=== PATIENT | male | born 1985 | race Caucasian/White ===

== ENCOUNTER 2016-12-18 12:58 | Emergency (ER) | payer MEDICARE, OTHER ==
[~2016-12-18] VITALS: Ht 180.3 cm; Wt 127.0 kg
[~2016-12-18 12:58] MED LIST: Z.0.NO CURRENT MEDS
[2016-12-18 13:04] VITALS: BP 126/90; PULSE 74; RESP 18; TEMP 98.5; O2SAT 97
[2016-12-18] MEDS ORDERED: XANA1TAB2 PO (14:00)
[2016-12-18] MEDS ORDERED: LAMO25 PO (14:00)
[2016-12-18] MEDS ORDERED: ASPI81CH CHEW (14:05)
[2016-12-18] MEDS ORDERED: MAGN500T2 PO (14:05)
[2016-12-18] MEDS ORDERED: CLIN1CAP5 PO (14:39)
--- NOTE | 2016-12-18 14:39 | PD ---
HPI Chief Complaint: Skin Problem Time Seen by Provider: 14:18 Travel History International Travel<30 days: No Contact w/Intl Traveler<30days: No Traveled to known affect area: No History of Present Illness HPI 31-year-old male complains of painful bumps on upper chest and shoulders. Patient states that the bumps started about 4 days ago. Patient denies any fever chills. Patient also has painful bumps on the groin area. Patient denies any recent injury. Patient denies any headache. Patient denies any chest pain or shortness of breath. PFSH Past Medical History Atrial Fibrillation: Yes (anxiety induced ) Anxiety: Yes Diminished Hearing: No Psychiatric: Yes (anxiety and PTSD) Tetanus Vaccination: Unknown Influenza Vaccination: No ?: Not Past Surgical History Appendectomy: Yes Social History Alcohol Use: No Tobacco Use: Yes (chewing tob) Substance Use: No Allergies-Medications (Allergen,Severity, Reaction): Coded Allergies: Penicillin (Verified Allergy, Mild, 12/18/16) Reported Meds & Prescriptions Reported Meds & Active Scripts Active Reported Aspirin 81 Mg Chew 81 Mg CHEW DAILY Magnesium Oxide 500 Mg Tab 500 Mg PO DAILY Lamictal (Lamotrigine) 25 Mg Tab 25 Mg PO BID Xanax (Alprazolam) 1 Mg Tab 1 Mg PO Q6H PRN No Current Meds (Miscellaneous Medication) Misc Review of Systems General / Constitutional: No: Fever Eyes: No: Visual changes HENT: No: Headaches Cardiovascular: No: Chest Pain or Discomfort Respiratory: No: Shortness of Breath Gastrointestinal: No: Abdominal Pain Genitourinary: No: Dysuria Musculoskeletal: No: Pain Skin: No Rash Neurologic: No: Weakness Psychiatric: No: Depression Endocrine: No: Polydipsia Hematologic/Lymphatic: No: Easy Bruising Physical Exam Narrative GENERAL: Well-nourished, well-developed patient. SKIN: Warm and dry. Multiple pustule papular lesions on the shoulder is an upper chest and upper back. Patient has a few papular lesions on inguinal area. No induration noted discharge. HEAD: Normocephalic. EYES: No scleral icterus. No injection or drainage. NECK: Supple, trachea midline. No JVD or lymphadenopathy. CARDIOVASCULAR: Regular rate and rhythm without murmurs, gallops, or rubs. RESPIRATORY: Breath sounds equal bilaterally. No accessory muscle use. GASTROINTESTINAL: Abdomen soft, non-tender, nondistended. MUSCULOSKELETAL: No cyanosis, or edema. BACK: Nontender without obvious deformity. No CVA tenderness. Neurologic exam normal. Data Data Last Documented VS Vital Signs Date Time Temp Pulse Resp B/P Pulse Ox O2 Delivery O2 Flow Rate FiO2 12/18/16 13:04 98.5 74 18 126/90 97 MDM Medical Decision Making Medical Screen Exam Complete: Yes Emergency Medical Condition: Yes Differential Diagnosis Differential diagnosis including folliculitis, cellulitis, chickenpox. Narrative Course 31-year-old male with painful pustule lesions on upper chest shoulder and inguinal area. Diagnosis Primary Impression: Folliculitis Patient Instructions: General Instructions Additional Instructions: Take medications as directed. Follow-up with local physician. Return if worse. Med/Other Pt SpecificInfo: Prescription(s) given Scripts Clindamycin 150 Mg Cap2 Tab PO Q6H #80 CAP Prov:Justyn Laws MD 12/18/16 Disposition: 01 DISCHARGE HOME Condition: Stable Justyn Laws MD Dec 18, 2016 14:39
[2017-01-24] MEDS ORDERED: LAMO25TA PO (13:20)
[2017-01-24] MEDS ORDERED: XANA1TAB2 PO (13:20)
[2017-01-24] MEDS ORDERED: MAGN500T5 PO (13:20)
[2017-01-24] MEDS ORDERED: ASPI81CH CHEW (13:20)
[2017-02-07] MEDS ORDERED: CIPR0.3S LEFT EAR (16:09)
[2017-02-20] MEDS ORDERED: PRIL20CA9 PO (09:50)
== END 2016-12-18 14:53 | disposition home or self-care (01) ==
LOC: PHED 12:58
DX: L73.9 Follicular disorder, unspecified (principal)
CPT/HCPCS: 99282

== ENCOUNTER 2017-01-07 17:56 | Emergency (ER) | payer MEDICARE, OTHER ==
[~2017-01-07] VITALS: Ht 180.3 cm; Wt 122.0 kg
[~2017-01-07 17:56] MED LIST changes: +ASPI81CH CHEW; +CLIN1CAP5 PO; +LAMO25 PO; +MAGN500T2 PO; +XANA1TAB2 PO
[2017-01-07 18:01] VITALS: BP 131/83; PULSE 80; RESP 16; TEMP 98.8; O2SAT 97
--- NOTE | 2017-01-07 18:06 | PD ---
HPI Chief Complaint: Anxiety Time Seen by Provider: 18:06 Travel History International Travel<30 days: No Contact w/Intl Traveler<30days: No Traveled to known affect area: No History of Present Illness HPI 31-year-old male presents to emergency Department with plates of anxiety, insomnia, palpitations, and easy anger. 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 Patient denies suicidal or homicidal ideation. Patient is upset that he has 2 young children he feels that he can't care for them safely. Patient states he has nights where he is asleep at all. He is easily startled. He is a marine with diagnosis of PTSD. Patient denies fever, chills, weight loss, weight gain, or other symptoms. He has no nausea or vomiting. [facility] not [facility]. He is allergic to penicillin. PFSH Past Medical History Atrial Fibrillation: Yes (anxiety induced ) Anxiety: Yes Diminished Hearing: No Psychiatric: Yes (anxiety and PTSD) Past Surgical History Appendectomy: Yes Social History Alcohol Use: No Tobacco Use: Yes (chewing tob) Substance Use: No Allergies-Medications (Allergen,Severity, Reaction): Coded Allergies: Penicillin (Verified Allergy, Mild, 01/07/17) Reported Meds & Prescriptions Reported Meds & Active Scripts Active Clindamycin (Clindamycin HCl) 150 Mg Cap 2 Tab PO Q6H Reported Aspirin 81 Mg Chew 81 Mg CHEW DAILY Magnesium Oxide 500 Mg Tab 500 Mg PO DAILY Lamictal (Lamotrigine) 25 Mg Tab 25 Mg PO BID Xanax (Alprazolam) 1 Mg Tab 1 Mg PO Q6H PRN No Current Meds (Miscellaneous Medication) Misc Review of Systems General / Constitutional: No: Fever Eyes: No: Visual changes HENT: No: Headaches Cardiovascular: No: Chest Pain or Discomfort Respiratory: No: Shortness of Breath Gastrointestinal: No: Abdominal Pain Genitourinary: No: Dysuria Musculoskeletal: No: Pain Skin: No Rash Neurologic: No: Weakness Psychiatric: Positive: Anxiety, Other (PTSD), No: Depression, Suicidal Ideations, Substance Abuse, Homicidal Ideation Endocrine: No: Polydipsia Hematologic/Lymphatic: No: Easy Bruising Physical Exam Narrative GENERAL: Patient is extremely anxious. He has pressured speech. He is in no acute distress. SKIN: Warm and dry. Normal color. Normal turgor. HEAD: Atraumatic. Normocephalic. EYES: Pupils equal and round. No scleral icterus. No injection or drainage. ENT: No nasal bleeding or discharge. Mucous membranes pink and moist. Pharynx is normal. NECK: Trachea midline. No JVD. Supple nontender without palpable thyroid. CARDIOVASCULAR: Tachycardic rate and normal rhythm. RESPIRATORY: No accessory muscle use. Clear to auscultation. Breath sounds equal bilaterally. GASTROINTESTINAL: Abdomen soft, non-tender, nondistended. Hepatic and splenic margins not palpable. MUSCULOSKELETAL: Extremities without clubbing, cyanosis, or edema. No obvious deformities. NEUROLOGICAL: Awake and alert. No obvious cranial nerve deficits. Motor grossly within normal limits. Five out of 5 muscle strength in the arms and legs. Normal speech. PSYCHIATRIC: Appropriate mood and affect; insight and judgment normal. Data Data Last Documented VS Vital Signs Date Time Temp Pulse Resp B/P Pulse Ox O2 Delivery O2 Flow Rate FiO2 01/07/17 18:01 98.8 80 16 131/83 97 MDM Medical Decision Making Medical Screen Exam Complete: Yes Emergency Medical Condition: Yes Differential Diagnosis PTSD. Anxiety disorder. Palpitations. Narrative Course Patient is medically stable at time of exam. Had a long discussion with the patient in regards to PTSD, symptoms and treatment options. Recommended trial of buspirone 10 mg 3 times daily #90. Patient is to take Vistaril 50 mg at bedtime as well. #30. Recommend the patient reach out to [facility] for help with his situation. Recommend patient follow with his primary care physician as soon as he gets his insurance straightened out. Patient can return to emergency department if symptoms worsen as discussed. Diagnosis Primary Impression: Post-traumatic stress disorder, chronic Referrals: Primary Care Physician Patient Instructions: General Instructions, Post Traumatic Stress Disorder (ED) Additional Instructions: Had a long discussion with the patient in regards to PTSD, symptoms and treatment options. Recommended trial of buspirone 10 mg 3 times daily #90. Patient is to take Vistaril 50 mg at bedtime as well. #30. Recommend the patient reach out to [facility] for help with his situation. Recommend patient follow with his primary care physician as soon as he gets his insurance straightened out. Patient can return to emergency department if symptoms worsen as discussed. Med/Other Pt SpecificInfo: Prescription(s) given Scripts Hydroxyzine Pamoate (Vistaril)50 Mg Cap50 Mg PO HS #30 CAP Ref 0 Prov:Melvin Luo MD 01/07/17 Buspirone 10 Mg Tab10 Mg PO TID #90 TAB Ref 0 Prov:Melvin Luo MD 01/07/17 Disposition: 01 DISCHARGE HOME Condition: Stable Sahil Man Jan 07, 2017 18:06
[2017-01-07] MEDS ORDERED: VIST50CA PO (18:22)
[2017-01-07] MEDS ORDERED: BUSP10TA PO (18:22)
[2017-01-24] MEDS ORDERED: ASPI81CH CHEW (13:20)
[2017-01-24] MEDS ORDERED: MAGN500T5 PO (13:20)
[2017-01-24] MEDS ORDERED: LAMO25TA PO (13:20)
[2017-01-24] MEDS ORDERED: XANA1TAB2 PO (13:20)
[2017-02-07] MEDS ORDERED: CIPR0.3S LEFT EAR (16:09)
[2017-02-20] MEDS ORDERED: PRIL20CA9 PO (09:50)
== END 2017-01-07 18:43 | disposition home or self-care (01) ==
LOC: PHEFT 17:56
DX: F43.12 Post-traumatic stress disorder, chronic (principal); I48.91 Unspecified atrial fibrillation; Z72.0 Tobacco use
CPT/HCPCS: 99283

== ENCOUNTER 2017-01-12 17:19 | Emergency (ER) | payer MEDICARE, OTHER ==
[~2017-01-12] VITALS: Ht 180.3 cm; Wt 122.0 kg
[2017-01-12 17:23] VITALS: BP 138/85; PULSE 92; RESP 20; TEMP 98.2; O2SAT 95
--- NOTE | 2017-01-12 20:11 | PD ---
HPI Chief Complaint: Medical Clearance Time Seen by Provider: 20:06 Travel History International Travel<30 days: No Contact w/Intl Traveler<30days: No Traveled to known affect area: No History of Present Illness HPI 31-year-old white male presents to emergency department requesting a refill of his alprazolam. He states that he has had a history of anxiety and PTSD. He also takes lamotrigine. He states that he is out of his anxiety medicine and he cannot find anyone to refill it. He was here in emergency department 2 days ago was given a prescription for buspirone and Vistaril. He states that he didn 't fill the buspirone but did not fill the Vistaril. He states that he feels he needs to have his benzos refilled. He cannot sleep. He states that he feels very anxious. He has having anger issues. He denies any suicidal homicidal ideation. He does not want to be admitted. He states that he would like to get a refill of a benzo. He states that he would also take a prescription for Klonopin. He moved from [place] 2 months ago and has not seen a primary care or psychiatrist since then. He states he has had problems with his insurance. PFSH Past Medical History Atrial Fibrillation: Yes (anxiety induced ) Anxiety: Yes Diminished Hearing: No Psychiatric: Yes (anxiety and PTSD) Past Surgical History Appendectomy: Yes Social History Alcohol Use: No Tobacco Use: Yes (chewing tob) Substance Use: No Allergies-Medications (Allergen,Severity, Reaction): Coded Allergies: Penicillin (Verified Allergy, Mild, RASH, 01/12/17) Reported Meds & Prescriptions Reported Meds & Active Scripts Active Review of Systems Except as stated in HPI: all other systems reviewed are Neg General / Constitutional: No: Fever, Chills Eyes: No: Diploplia, Blurred Vision HENT: No: Headaches, Lightheadedness Cardiovascular: Positive: Palpitations, Tachycardia, No: Chest Pain or Discomfort Respiratory: No: Cough, Shortness of Breath Gastrointestinal: Positive: Nausea, No: Vomiting Genitourinary: No: Dysuria, Hematuria Musculoskeletal: No: Arthralgias, Limited ROM Skin: No Rash, No Itching Psychiatric: Positive: Anxiety, No: Depression, Suicidal Ideations, Disorder of Thought, Mood Disorder, Substance Abuse, Homicidal Ideation Physical Exam Narrative GENERAL: Well-nourished, well-developed patient. SKIN: Warm and dry. HEAD: Normocephalic and atraumatic. EYES: No scleral icterus. No injection or drainage. ENT: No nasal drainage noted. Mucous membranes pink. Airway patent. NECK: Supple, trachea midline. Moves head freely without obvious discomfort. CARDIOVASCULAR: Regular rate and rhythm without murmurs, gallops, or rubs. RESPIRATORY: Breath sounds equal bilaterally. No accessory muscle use. GASTROINTESTINAL: Abdomen soft, non-tender, nondistended. EXTREMITIES: No cyanosis or edema. BACK: Nontender without obvious deformity. No CVA tenderness. NEURO: Patient is alert and oriented. no sensorimotor deficits. Nonfocal. Normal speech. PSYCH: No delusions. No auditory or visual hallucinations. Data Data Last Documented VS Vital Signs Date Time Temp Pulse Resp B/P Pulse Ox O2 Delivery O2 Flow Rate FiO2 01/12/17 17:23 98.2 92 20 138/85 95 Room Air MDM Medical Decision Making Medical Screen Exam Complete: Yes Emergency Medical Condition: Yes Medical Record Reviewed: Yes Differential Diagnosis MDM: High Differential diagnoses: Schizophrenia, schizoaffective disorder, bipolar, anxiety, depression, adjustment reaction, PTSD, medication refill Narrative Course The patient has declined an evaluation for inpatient management. The patient does not have suicidal homicidal ideation. There is no indication for involuntary admission. I've spoken with the psych department. The psych nurse will come down and reiterate that we do not refill benzos to the ER and he'll be given a packet for outpatient follow-up. This is PTSD, anxiety Diagnosis Primary Impression: Post-traumatic stress disorder, chronic Additional Impression: Anxiety Referrals: [facility] (Out patient) 1 day Patient Instructions: General Instructions Additional Instructions: Rest. Follow-up the recommendations of the psych screener. Disposition: 01 DISCHARGE HOME Condition: Stable Xavier Ramos Jan 12, 2017 20:11
[2017-01-24] MEDS ORDERED: MAGN500T5 PO (13:20)
[2017-01-24] MEDS ORDERED: LAMO25TA PO (13:20)
[2017-01-24] MEDS ORDERED: XANA1TAB2 PO (13:20)
[2017-01-24] MEDS ORDERED: ASPI81CH CHEW (13:20)
[2017-02-07] MEDS ORDERED: CIPR0.3S LEFT EAR (16:09)
[2017-02-20] MEDS ORDERED: PRIL20CA9 PO (09:50)
== END 2017-01-12 20:42 | disposition home or self-care (01) ==
LOC: NETRI 17:19
DX: F43.12 Post-traumatic stress disorder, chronic (principal); F41.9 Anxiety disorder, unspecified
CPT/HCPCS: 99282

== ENCOUNTER 2017-02-23 15:57 | Emergency (ER) | payer MEDICARE, MEDICAID ==
[~2017-02-23 15:57] MED LIST changes: -ASPI81CH CHEW; +CIPR0.3S LEFT EAR; -CLIN1CAP5 PO; -LAMO25 PO; +LAMO25TA PO; -MAGN500T2 PO; +PRIL20CA9 PO; -Z.0.NO CURRENT MEDS
[2017-02-23 15:59] VITALS: BP 137/82; PULSE 78; RESP 20; TEMP 98.8; O2SAT 98
--- NOTE | 2017-02-23 16:06 | PD ---
Physical Exam Date Seen by Provider: February 23, 2017 Time Seen by Provider: 16:05 Narrative 31 YOWM C/O L CALF PAIN TODAY. VSS wating for bed asignment Data Data Last Documented VS Vital Signs Date Time Temp Pulse Resp B/P Pulse Ox O2 Delivery O2 Flow Rate FiO2 02/23/17 15:59 98.8 78 20 137/82 98 Room Air [facility] Medical Record Reviewed: No Supervised Visit with MEREDITH: Xavier Lovell February 23, 2017 16:06
--- NOTE | 2017-02-23 16:12 | PD ---
HPI . left calf pain for 1 day Chief Complaint: Pain: Acute or Chronic Time Seen by Provider: 16:12 Travel History International Travel<30 days: No Contact w/Intl Traveler<30days: No Traveled to known affect area: No History of Present Illness HPI 31-year-old male with posterior much stress disorder and anxiety here with complaints of left calf pain. Patient says that he all of a sudden developed calf pain out of nowhere. He does admit to lifting weights and thinks it's possible that he may have pulled something, however the pain is very deep within and he was concerned about blood clots. He tells me that his mom has a history of blood clots and some type of clotting disorder, and has had PE in the past. He is not certain if he may also have similar. He denies any chest pain, nausea, vomiting or shortness of breath. He was very worried about a blood clot so he decided to come to ED as his girlfriend was upstairs getting surgery. PFSH Past Medical History Atrial Fibrillation: Yes (anxiety induced ) Anxiety: Yes Cardiovascular Problems: Yes (AFIB) Diminished Hearing: No Psychiatric: Yes (anxiety and PTSD) Past Surgical History Appendectomy: Yes Social History Alcohol Use: No Tobacco Use: Yes (chewing tob) Substance Use: No Allergies-Medications (Allergen,Severity, Reaction): Coded Allergies: Codeine (Verified Allergy, Unknown, "ATRIAL FIB", 02/23/17) Penicillin (Verified Allergy, Unknown, Hives, 02/23/17) Reported Meds & Prescriptions Reported Meds & Active Scripts Active Reported Aspirin Low Dose (Aspirin) 81 Mg Chew 81 Mg CHEW DAILY Xanax (Alprazolam) 1 Mg Tab 1 Mg PO Q6H PRN Review of Systems General / Constitutional: No: Fever Eyes: No: Visual changes HENT: No: Headaches Cardiovascular: No: Chest Pain or Discomfort Respiratory: No: Shortness of Breath Gastrointestinal: No: Abdominal Pain Genitourinary: No: Dysuria Musculoskeletal: Positive: Pain (calf pain) Skin: No Rash Neurologic: No: Weakness Psychiatric: No: Depression Endocrine: No: Polydipsia Hematologic/Lymphatic: No: Easy Bruising Physical Exam Narrative GENERAL: AAO x 3, no acute distress, Well-nourished, well-developed patient. SKIN: Warm and dry. No visible rashes or bruising. HEAD: Normocephalic and atraumatic. EYES: No scleral icterus. No injection or drainage. EOM intact, PERRLA ENT: No nasal drainage noted. Mucous membranes pink. Airway patent. NECK: Supple, trachea midline. No JVD. CARDIOVASCULAR: Regular rate and rhythm without murmurs, gallops, or rubs. RESPIRATORY: Breath sounds equal bilaterally. No accessory muscle use. No rhonchi or rales. GASTROINTESTINAL: Visual inspection normal EXTREMITIES: No cyanosis or edema. no deformity of b/l calf. BACK: Nontender without obvious deformity. No CVA tenderness. sensation intact, strength is normal b/l LE PSYCH: AAO x 3, normal affect. Data Data Last Documented VS Vital Signs Date Time Temp Pulse Resp B/P Pulse Ox O2 Delivery O2 Flow Rate FiO2 02/23/17 15:59 98.8 78 20 137/82 98 Room Air Orders Us Leg Venous Doppler (02/23/17 16:17) MDM Medical Decision Making Medical Screen Exam Complete: Yes Emergency Medical Condition: Yes Medical Record Reviewed: Yes Differential Diagnosis muscle strain, less likely DVT, less likely fracture Narrative Course 31-year-old male with posterior much stress disorder and anxiety here with complaints of left calf pain. Patient says that he all of a sudden developed calf pain out of nowhere. He does admit to lifting weights and thinks it's possible that he may have pulled something, however the pain is very deep within and he was concerned about blood clots. He tells me that his mom has a history of blood clots and some type of clotting disorder, and has had PE in the past. He is not certain if he may also have similar. He denies any chest pain, nausea, vomiting or shortness of breath. He was very worried about a blood clot so he decided to come to ED as his girlfriend was upstairs getting surgery. Patient seen and examined. His examination is unremarkable. I cannot elicit any pain on examination. Due to his family risk factors, I will go ahead and check a venous Doppler to rule out any type of DVT. I believe this will be negative. I've advised him if this is negative he will be discharged home and advised to follow-up with his primary care provider and there are no findings on examination. Patient is in agreement. Venous doppler negative. Advised to try otc tylenol/motrin PRN. Patient verbalized understanding of instructions, questions were answered, and thanked me for their care. I advised them if their condition worsens, please return to the nearest emergency room for further care. Diagnosis Primary Impression: Calf pain Qualified Code: M79.662 - Pain of left calf Patient Instructions: General Instructions Additional Instructions: You can use [id number] Tylenol or ibuprofen as needed for pain. Follow-up with your primary care provider. Med/Other Pt SpecificInfo: No Change to Meds Disposition: 01 DISCHARGE HOME Condition: Stable Adri Casey February 23, 2017 16:12
[2017-02-23] MEDS ORDERED: ASPI81CH37 CHEW (16:14)
--- NOTE | 2017-02-23 17:56 | RADRPT ---
EXAM DATE/TIME: 02/23/2017 17:21 [facility] COMPARISON: No previous studies available for comparison. INDICATIONS : Left leg pain. MEDICAL HISTORY : Myocardial infarction. Afib. Asthma. Anxiety. Post traumatic stress disorder. Cervical fracture. SURGICAL HISTORY : None. ENCOUNTER: Initial ACUITY: 1 day PAIN SCORE: 5/10 LOCATION: Left leg. TECHNIQUE: Venous ultrasound of the leg was performed from the inguinal ligament to the proximal calf. Real-mario e, color Doppler and spectral tracing, compression and augmentation techniques were used. FINDINGS: There is normal compressibility of the deep venous system from the inguinal region to the proximal ca lf. No echogenic clot is seen in the lumen of the common femoral, femoral, popliteal, and posterior tibial veins. There is a normal response of the venous system to proximal and distal augmentation an d respiration. CONCLUSION: Normal examination. Mick Glover MD on February 23, 2017 at 17:54 Board Certified Radiologist. This report was verified electronically.
== END 2017-02-23 18:31 | disposition home or self-care (01) ==
LOC: NEPK 15:57
DX: M79.662 Pain in left lower leg (principal); I48.91 Unspecified atrial fibrillation; Z72.0 Tobacco use
CPT/HCPCS: 93971

== ENCOUNTER 2017-04-11 16:42 | Emergency (ER) | payer MEDICARE, MEDICAID ==
[~2017-04-11] VITALS: Ht 180.3 cm; Wt 122.0 kg
[~2017-04-11 16:42] MED LIST changes: +ASPI81CH37 CHEW; -CIPR0.3S LEFT EAR; -LAMO25TA PO; -PRIL20CA9 PO
[2017-04-11 16:46] VITALS: BP 140/88; PULSE 73; RESP 14; TEMP 98.4; O2SAT 97
[2017-04-11 16:57] VITALS: BP 140/88; PULSE 73; RESP 16; TEMP 98.4; O2SAT 97
[2017-04-11] MEDS ORDERED: CYCL1TAB29 PO (17:07)
--- NOTE | 2017-04-11 17:07 | PD ---
HPI . Occipital pain Chief Complaint: Back/ Neck Pain or Injury Time Seen by Provider: 16:55 Travel History International Travel<30 days: No Contact w/Intl Traveler<30days: No Traveled to known affect area: No History of Present Illness HPI Patient presents with a 3 day history of occipital pain. He states that he awakens from sleep with the pain. He describes it as a throbbing, pressure- like pain which is an 8/10. He states that he goes back to sleep and awakens with minimal pain. He states that he doesn't know why he is having the pain and it is causing him to have a panic attack. He notes no exacerbating factor. PFSH Past Medical History Hx Anticoagulant Therapy: Yes (BABY ASA DAILY) Atrial Fibrillation: Yes (anxiety induced PER PT.) Anxiety: Yes Cardiovascular Problems: Yes (AFIB) Diminished Hearing: No Psychiatric: Yes (anxiety and PTSD) Tetanus Vaccination: Unknown Past Surgical History Appendectomy: Yes Social History Alcohol Use: No Tobacco Use: Yes (chewing tob) Substance Use: No Allergies-Medications (Allergen,Severity, Reaction): Coded Allergies: Codeine (Verified Allergy, Unknown, "ATRIAL FIB", 04/11/17) Penicillin (Verified Allergy, Unknown, Hives, 04/11/17) Reported Meds & Prescriptions Reported Meds & Active Scripts Active Flexeril (Cyclobenzaprine HCl) 10 Mg Tab 10 Mg PO TID Reported Aspirin Low Dose (Aspirin) 81 Mg Chew 81 Mg CHEW DAILY Xanax (Alprazolam) 1 Mg Tab 1 Mg PO Q6H PRN Review of Systems Except as stated in HPI: all other systems reviewed are Neg General / Constitutional: No: Fever, Chills HENT: Positive: Headaches Neurologic: Positive: Paresthesia Psychiatric: Positive: Anxiety Physical Exam Narrative GENERAL: Awake and alert and in no acute distress. He is initially Seen on his phone in no distress. SKIN: Warm and dry. HEAD: Atraumatic. Normocephalic. Occipital tenderness. EYES: Pupils equal and round. Extraocular movements are intact. NECK: Trachea midline. C-spine is nontender with full range of motion. CARDIOVASCULAR: Regular rate and rhythm. RESPIRATORY: No accessory muscle use. MUSCULOSKELETAL: No obvious deformities. No edema. NEUROLOGICAL: Awake and alert. No obvious cranial nerve deficits. Motor grossly within normal limits. Normal speech. PSYCHIATRIC: Appropriate mood and affect; insight and judgment normal. Data Data Last Documented VS Vital Signs Date Time Temp Pulse Resp B/P Pulse Ox O2 Delivery O2 Flow Rate FiO2 04/11/17 16:57 98.4 73 16 140/88 97 04/11/17 16:[address] Brain W/O Iv Contrast(Rout) (04/11/17 16:57) Ct Cerv Spine W/O Contrast (04/11/17 16:57) MDM Medical Decision Making Medical Screen Exam Complete: Yes Emergency Medical Condition: Yes Differential Diagnosis Differential diagnosis of headache includes but is not limited to migraine, muscle contraction headache, brain tumor, brain bleed Narrative Course Patient presents for evaluation of occipital pain. He is having very little pain at present. States that he is here because he doesn't know what caused the pain is. He is very nervous about this. Therefore, I have ordered a CT of his head and C-spine. CT of head and C-spine are negative. Diagnosis Primary Impression: Occipital pain Patient Instructions: Acute Neck Pain (ED), General Instructions Scripts Cyclobenzaprine (Flexeril)10 Mg Tab10 Mg PO TID #30 TAB Ref 0 Prov:Judith Mitchell MD 04/11/17 Disposition: 01 DISCHARGE HOME Condition: Stable Judith Mitchell MD Apr 11, 2017 17:07
--- NOTE | 2017-04-11 17:57 | RADRPT ---
EXAM DATE/TIME: 04/11/2017 17:25 [facility] COMPARISON: No previous studies available for comparison. INDICATIONS : Severe cephalgia and neck pain in the mornings. RADIATION DOSE: 65.61 CTDIvol (mGy) MEDICAL HISTORY : Cervical spine fracture as adolescent. SURGICAL HISTORY : Halo for cervical fracture. ENCOUNTER: Initial ACUITY: 2 days PAIN SCALE: 7/10 LOCATION: cranial TECHNIQUE: Multiple contiguous axial images were obtained of the head. Using automated exposure control and adj ustment of the mA and/or kV according to patient size, radiation dose was kept as low as reasonably a chievable to obtain optimal diagnostic quality images. DICOM format image data is available electro nically for review and comparison. FINDINGS: CEREBRUM: The ventricles are normal for age. No evidence of midline shift, mass lesion, hemorrhage or acute in farction. No extra-axial fluid collections are seen. POSTERIOR FOSSA: The cerebellum and brainstem are intact. The 4th ventricle is midline. The cerebellopontine angle i s unremarkable. EXTRACRANIAL: The visualized portion of the orbits is intact. SKULL: The calvaria is intact. No evidence of skull fracture. CONCLUSION: Normal examination. Mick Glover MD on April 11, 2017 at 17:45 Board Certified Radiologist. This report was verified electronically.
--- NOTE | 2017-04-11 18:00 | RADRPT ---
EXAM DATE/TIME: 04/11/2017 17:25 [facility] COMPARISON: No previous studies available for comparison. INDICATIONS : Severe neck pain in the mornings with numbness at inner femurs. RADIATION DOSE: 26.43 CTDIvol (mGy) MEDICAL HISTORY : Cervical fracture as an adolescent. SURGICAL HISTORY : Halo for cervical fracture. ENCOUNTER: Initial ACUITY: 2 days PAIN SCALE: 10/10 LOCATION: Paraspinal TECHNIQUE: Volumetric scanning of the cervical spine was performed. Multiplanar reconstructions in the sagittal, coronal and oblique axial planes were performed. Using automated exposure control and adjustment o f the mA and/or kV according to patient size, radiation dose was kept as low as reasonably achievable to obtain optimal diagnostic quality images. DICOM format image data is available electronically f or review and comparison. FINDINGS: VERTEBRAE: Normal vertebral body height. ALIGNMENT: No evidence of subluxation. C2-C3: The bony spinal canal is normal in size. No evidence of disc bulge or herniation. The neural forami na are bilaterally patent. C3-C4: The bony spinal canal is normal in size. No evidence of disc bulge or herniation. The neural forami na are bilaterally patent. C4-C5: The bony spinal canal is normal in size. No evidence of disc bulge or herniation. The neural forami na are bilaterally patent. C5-C6: The bony spinal canal is normal in size. No evidence of disc bulge or herniation. The neural forami na are bilaterally patent. C6-C7: The bony spinal canal is normal in size. No evidence of disc bulge or herniation. The neural forami na are bilaterally patent. C7-T1: The bony spinal canal is normal in size. No evidence of disc bulge or herniation. The neural forami na are bilaterally patent. There is minimal nonspecific small cervical lymph nodes noted. CONCLUSION: Negative for fracture. Nonspecific cervical lymph nodes. Musa Jaime MD FACR on April 11, 2017 at 17:56 Board Certified Radiologist. This report was verified electronically.
[2017-04-11] MEDS ORDERED: SOMA350T PO (18:11)
== END 2017-04-11 18:31 | disposition home or self-care (01) ==
LOC: PHED 16:42
DX: M54.2 Cervicalgia (principal); R51 Headache; Z88.0 Allergy status to penicillin; I48.91 Unspecified atrial fibrillation; F41.9 Anxiety disorder, unspecified; Z79.82 Long term (current) use of aspirin
CPT/HCPCS: 70450; 72125; 99284

== ENCOUNTER 2017-05-28 21:23 | Emergency (ER) | payer MEDICARE, MEDICAID ==
[~2017-05-28] VITALS: Ht 180.3 cm; Wt 124.0 kg
[~2017-05-28 21:23] MED LIST changes: +SOMA350T PO
[2017-05-28 21:33] VITALS: BP 131/84; PULSE 93; RESP 16; TEMP 97.6; O2SAT 98
--- NOTE | 2017-05-28 21:58 | PD ---
HPI Chief Complaint: C/O BP Time Seen by Provider: 21:36 Travel History International Travel<30 days: No Contact w/Intl Traveler<30days: No Traveled to known affect area: No History of Present Illness HPI PATIENT HAS H/O AFIB AND WILL BE SEEING AN EPS SPECIALIST TO GET RID OF IT. PATIENT HAS BEEN FEELING FOGGY HEADED, NO ACTUAL MAIN, BUT JUST LIKE THINGS ARE MOVING IN SLOW MOTION, PATIENT IS ON BZD FOR ANXIETY RELATED TO PER HX. PT CONCERNED ABOUT HIGH READINGS OF BP (SYSTOLIC FROM 180-170'S). PFSH Past Medical History Hx Anticoagulant Therapy: Yes (BABY ASA DAILY) Atrial Fibrillation: Yes (anxiety induced PER PT.) Anxiety: Yes Cardiovascular Problems: Yes (AFIB) Diminished Hearing: No Psychiatric: Yes (anxiety and PTSD) Past Surgical History Appendectomy: Yes Social History Alcohol Use: No Tobacco Use: Yes (chewing tob) Substance Use: No Allergies-Medications (Allergen,Severity, Reaction): Coded Allergies: Codeine (Verified Allergy, Unknown, "ATRIAL FIB", 05/28/17) Penicillin (Verified Allergy, Unknown, Hives, 05/28/17) Reported Meds & Prescriptions Reported Meds & Active Scripts Active Reported Aspirin Low Dose (Aspirin) 81 Mg Chew 81 Mg CHEW DAILY Xanax (Alprazolam) 1 Mg Tab 1 Mg PO Q6H PRN Review of Systems Except as stated in HPI: all other systems reviewed are Neg Physical Exam Narrative GENERAL: SKIN: Warm and dry. HEAD: Atraumatic. Normocephalic. EYES: Pupils equal and round. No scleral icterus. No injection or drainage. ENT: No nasal bleeding or discharge. Mucous membranes pink and moist. NECK: Trachea midline. No JVD. CARDIOVASCULAR: Regular rate and rhythm. RESPIRATORY: No accessory muscle use. Clear to auscultation. Breath sounds equal bilaterally. GASTROINTESTINAL: Abdomen soft, non-tender, nondistended. MUSCULOSKELETAL: Extremities without clubbing, cyanosis, or edema. No obvious deformities. NEUROLOGICAL: Awake and alert. No obvious cranial nerve deficits. Motor grossly within normal limits. Five out of 5 muscle strength in the arms and legs. Normal speech. PSYCHIATRIC: Appropriate mood and affect; insight and judgment normal. Data Data Last Documented VS Vital Signs Date Time Temp Pulse Resp B/P Pulse Ox O2 Delivery O2 Flow Rate FiO2 05/28/17 22:12 86 18 98 Room Air 05/28/17 22:09 155/84 05/28/17 21:33 97.6 Orders Electrocardiogram (05/28/17 21:53) Complete Blood Count With Diff (05/28/17 21:53) Comprehensive Metabolic Panel (05/28/17 21:53) Thyroid Stimulating Hormone (05/28/17 21:53) Clonidine (Catapres) (05/28/17 22:00) Acetaminophen (Tylenol) (05/28/17 22:15) Labs Laboratory Tests Test 05/28/17 22:00 White Blood Count 12.5 TH/MM3 Red Blood Count 4.86 MIL/MM3 Hemoglobin 13.8 GM/DL Hematocrit 42.5 % Mean Corpuscular Volume 87.4 FL Mean Corpuscular Hemoglobin 28.3 PG Mean Corpuscular Hemoglobin 32.4 % Concent Red Cell Distribution Width 12.7 % Platelet Count 279 TH/MM3 Mean Platelet Volume 8.2 FL Neutrophils (%) (Auto) 52.7 % Lymphocytes (%) (Auto) 37.2 % Monocytes (%) (Auto) 6.0 % Eosinophils (%) (Auto) 2.0 % Basophils (%) (Auto) 2.1 % Neutrophils # (Auto) 6.4 TH/MM3 Lymphocytes # (Auto) 4.7 TH/MM3 Monocytes # (Auto) 0.8 TH/MM3 Eosinophils # (Auto) 0.3 TH/MM3 Basophils # (Auto) 0.3 TH/MM3 CBC Comment DIFF FINAL Differential Comment Sodium Level 138 MEQ/L Potassium Level 3.9 MEQ/L Chloride Level 105 MEQ/L Carbon Dioxide Level 25.8 MEQ/L Anion Gap 7 MEQ/L Blood Urea Nitrogen 14 MG/DL Creatinine 1.40 MG/DL Estimat Glomerular Filtration 59 ML/MIN Rate Random Glucose 103 MG/DL Calcium Level 8.8 MG/DL Total Bilirubin 0.2 MG/DL Aspartate Amino Transf 26 U/L (AST/SGOT) Alanine Aminotransferase 34 U/L (ALT/SGPT) Alkaline Phosphatase 74 U/L Total Protein 7.7 GM/DL Albumin 3.6 GM/DL Thyroid Stimulating Hormone 1.760 uIU/ML 3rd Gen [facility] Medical Decision Making Medical Screen Exam Complete: Yes Emergency Medical Condition: Yes Medical Record Reviewed: Yes Interpretation(s) NSR 78, NL INTERVALS, NO STEMI PATTERN Differential Diagnosis EVAL FOR RENAL V LIVER FAILURE DAMAGE DUE TO HTN, ALSO EVAL FOR ELECTROLYTE ABNL V HYPOGLYCEMIA V THYROID DISORDER CAUSING PALPITATIONS Narrative Course NO E/O LIVER DISEASE, NO THYROID D/O, NOR ANY ELECTROLYTE ABNORMALITY...HOWEVER CREATININE AND GFR ARE SLIGHTLY ABNORMAL BUT C/W UNTREATED HTN, WILL START ON HCTZ AND REFER TO PCP FOR FOLLOWUP Diagnosis Primary Impression: POSSIBLE NEW ONSET HYPERTENSION Patient Instructions: General Instructions, Hypertension (ED) Scripts Hydrochlorothiazide 25 Mg Tab25 Mg PO DAILY #30 TAB Ref 0 Prov:Keshawn Eden MD 05/28/17 Disposition: 01 DISCHARGE HOME Condition: Stable Keshawn Eden MD May 28, 2017 21:58
[2017-05-28] MEDS ORDERED: cloNIDine HCL 0.1 MG TAB PO ONE (22:00)
[2017-05-28 22:09] VITALS: BP 155/84; PULSE 86; RESP 18; O2SAT 98
[2017-05-28 22:12] LABS: AUTOMATED NEUTROPHIL # 6.4 TH/MM3 (1.8-7.7); BASOPHIL # 0.3 TH/MM3 (0-0.2); BASOPHIL % 2.1 % (0.0-2.0); EOSINOPHIL # 0.3 TH/MM3 (0-0.4); HEMATOCRIT 42.5 % (39.0-51.0); LYMPH % 37.2 % (9.0-44.0); LYMPHOCYTE # 4.7 TH/MM3 (1.0-4.8); MEAN CELL VOLUME 87.4 FL (80.0-100.0); MEAN CORPUSCULAR HEMOGLOBIN 28.3 PG (27.0-34.0); MEAN CORPUSCULAR HGB CONC 32.4 % (32.0-36.0); NEUT % 52.7 % (16.0-70.0); PLATELET COUNT 279 TH/MM3 (150-450); RED BLOOD COUNT 4.86 MIL/MM3 (4.50-5.90); RED CELL DISTRIBUTION WIDTH 12.7 % (11.6-17.2); WHITE BLOOD COUNT 12.5 TH/MM3 (4.0-11.0)
[2017-05-28] MEDS ORDERED: ACETAMINOPHEN 325 MG TAB PO ONE (22:15)
[2017-05-28 22:19] LABS: CHLORIDE 105 MEQ/L (98-107); POTASSIUM 3.9 MEQ/L (3.5-5.1); SODIUM (NA) 138 MEQ/L (136-145)
[2017-05-28 22:22] LABS: HEMO FLAGS DIFF FINAL
[2017-05-28 22:23] LABS: ANION GAP 7 MEQ/L (5-15); BICARBONATE 25.8 MEQ/L (21.0-32.0); BLOOD UREA NITROGEN 14 MG/DL (7-18)
[2017-05-28 22:26] LABS: ALT (GPT) 34 U/L (12-78); AST (GOT) 26 U/L (15-37); GLOMERULAR FILTRATION RATE 59 ML/MIN (>89)
[2017-05-28 22:27] LABS: TOTAL BILIRUBIN ADULT 0.2 MG/DL (0.2-1.0)
[2017-05-28 22:28] LABS: ALKALINE PHOSPHATASE 74 U/L (45-117)
[2017-05-28] MEDS ORDERED: HYDR25TA5 PO (22:52)
[2017-05-28] MEDS ORDERED: SOMA350T PO (22:58)
[2017-05-28 23:10] VITALS: BP 122/71
--- NOTE | 2017-05-29 07:38 | EKG ---
Date Performed: 05/28/2017 Time Performed: 22:15:40 PTAGE: 32 years EKG: Sinus rhythm WITH SINUS ARRHYTHMIA NORMAL ECG Compared to prior tracing no significant change PREVIOUS TRACING : 02/17/2006 18.57 DOCTOR: Doug Gottlieb Interpretating Date/Time 05/29/2017 07:37:20
[2017-06-08] MEDS ORDERED: ABIL2TAB2 PO (14:54)
[2017-06-08] MEDS ORDERED: FLUT1SPR5 EACH NARE (15:10)
[2017-06-08] MEDS ORDERED: CETI10CA3 PO (15:10)
== END 2017-05-28 23:18 | disposition home or self-care (01) ==
LOC: PHED 21:23
DX: R03.0 Elevated blood-pressure reading, without diagnosis of hypertension (principal); I48.91 Unspecified atrial fibrillation; F43.10 Post-traumatic stress disorder, unspecified; F17.220 Nicotine dependence, chewing tobacco, uncomplicated
CPT/HCPCS: 80053; 84443; 85025; 93005; 99283

== ENCOUNTER 2017-06-23 16:33 | Emergency (ER) | payer MEDICARE, MEDICAID ==
[~2017-06-23] VITALS: Ht 182.9 cm; Wt 123.0 kg
[~2017-06-23 16:33] MED LIST changes: +ABIL2TAB2 PO; +CETI10CA3 PO; +FLUT1SPR5 EACH NARE
[2017-06-23 16:39] VITALS: BP 133/76; PULSE 91; RESP 18; TEMP 98; O2SAT 98
[2017-06-23 17:24] LABS: AUTOMATED NEUTROPHIL # 6.3 TH/MM3 (1.8-7.7); BASOPHIL # 0.2 TH/MM3 (0-0.2); BASOPHIL % 1.7 % (0.0-2.0); EOSINOPHIL # 0.3 TH/MM3 (0-0.4); EOSINOPHIL % 2.5 % (0.0-4.0); HEMATOCRIT 44.7 % (39.0-51.0); LYMPH % 30.3 % (9.0-44.0); LYMPHOCYTE # 3.2 TH/MM3 (1.0-4.8); MEAN CELL VOLUME 87.3 FL (80.0-100.0); MEAN CORPUSCULAR HEMOGLOBIN 28.7 PG (27.0-34.0); MEAN CORPUSCULAR HGB CONC 32.9 % (32.0-36.0); MONO % 5.2 % (0.0-8.0); NEUT % 60.3 % (16.0-70.0); PLATELET COUNT 282 TH/MM3 (150-450); RED BLOOD COUNT 5.12 MIL/MM3 (4.50-5.90); RED CELL DISTRIBUTION WIDTH 12.5 % (11.6-17.2); WHITE BLOOD COUNT 10.5 TH/MM3 (4.0-11.0)
[2017-06-23 17:26] LABS: HEMO FLAGS DIFF FINAL
--- NOTE | 2017-06-23 17:31 | PD ---
HPI Chief Complaint: Headache Time Seen by Provider: 16:54 Travel History International Travel<30 days: No Contact w/Intl Traveler<30days: No Traveled to known affect area: No History of Present Illness HPI This patient complains of left-sided headache which primarily occurs if he looks down or turns his head a certain way or coughs or sneezes. Last about 45 minutes and then resolves. Duration one day. Moderate. No alleviating factors. He denies fever or head injury. When he is getting that pain he also reports some sided facial numbness/hypersensitivity. No leg weakness or sensory loss. No speech slurring or confusion. Patient reports that he had a family member and that 30s of ruptured aneurysm. He is most concerned about having a brain aneurysm. He says it's rare to get headaches. PFSH Past Medical History Hx Anticoagulant Therapy: Yes (BABY ASA DAILY) Atrial Fibrillation: Yes (anxiety induced PER PT.) Anxiety: Yes Depression: Yes Cardiovascular Problems: Yes (AFIB) Cerebrovascular Accident: Yes (PER PT WHILE ON ACTIVE DUTY) Diminished Hearing: No Psychiatric: Yes (anxiety and PTSD) Influenza Vaccination: No Past Surgical History Appendectomy: Yes Social History Alcohol Use: Yes (SHOT WHISKEY THIS AFTERNOON) Tobacco Use: Yes (chewing tob) Substance Use: No Allergies-Medications (Allergen,Severity, Reaction): Coded Allergies: codeine (Verified Allergy, Unknown, "ATRIAL FIB", 06/23/17) penicillin G (Verified Allergy, Unknown, Hives, 06/23/17) Reported Meds & Prescriptions Reported Meds & Active Scripts Active Zyrtec (Cetirizine HCl) 10 Mg Capsule 10 Cap PO DAILY Soma (Carisoprodol) 350 Mg Tab 350 Mg PO QID PRN Reported Aspirin Low Dose (Aspirin) 81 Mg Chew 81 Mg CHEW DAILY Xanax (Alprazolam) 1 Mg Tab 1 Mg PO Q6H PRN Review of Systems General / Constitutional: No: Fever Eyes: No: Visual changes HENT: Positive: Headaches Cardiovascular: No: Chest Pain or Discomfort Respiratory: No: Shortness of Breath Gastrointestinal: No: Abdominal Pain Genitourinary: No: Dysuria Musculoskeletal: No: Pain Skin: No Rash Neurologic: Positive: Headache, Sensory Disturbance, No: Weakness Psychiatric: No: Depression Endocrine: No: Polydipsia Hematologic/Lymphatic: No: Easy Bruising Physical Exam Narrative GENERAL: Well-nourished, well-developed patient in no apparent distress. SKIN: Focused skin assessment reveals no rash and nodules. Skin is Warm and dry. HEAD: Atraumatic. Normocephalic. No scalp tenderness. EYES: Pupils equal and round. No scleral icterus. No injection or drainage. ENT: No nasal bleeding or discharge. Mucous membranes pink and moist. NECK: Trachea midline. No JVD. No meningeal signs CARDIOVASCULAR: Regular rate and rhythm. No murmur appreciated. RESPIRATORY: No accessory muscle use. Clear to auscultation. Breath sounds equal bilaterally. GASTROINTESTINAL: Abdomen soft, non-tender, nondistended. Hepatic and splenic margins not palpable. MUSCULOSKELETAL: No obvious deformities. No clubbing. No cyanosis. No edema. NEUROLOGICAL: Awake and alert. No obvious cranial nerve deficits. Motor grossly within normal limits. Normal speech. PSYCHIATRIC: Appropriate mood and affect; insight and judgment normal. Data Data Last Documented VS Vital Signs Date Time Temp Pulse Resp B/P (MAP) Pulse Ox O2 Delivery O2 Flow Rate FiO2 06/23/17 18:43 76 16 120/72 (88) 98 Room Air 06/23/17 16:39 98.0 Orders Orders Iv Access Insert/Monitor (06/23/17 17:05) Complete Blood Count With Diff (06/23/17 17:05) Basic Metabolic Panel (Bmp) (06/23/17 17:05) Cta Brain W Iv Contrast W 3d (06/23/17 ) Ct Brain W/O Iv Contrast(Rout) (06/23/17 ) Iohexol 350 Inj (Omnipaque 350 Inj) (06/23/17 18:05) Labs Laboratory Tests Test 06/23/17 17:15 White Blood Count 10.5 TH/MM3 Red Blood Count 5.12 MIL/MM3 Hemoglobin 14.7 GM/DL Hematocrit 44.7 % Mean Corpuscular Volume 87.3 FL Mean Corpuscular Hemoglobin 28.7 PG Mean Corpuscular Hemoglobin Concent 32.9 % Red Cell Distribution Width 12.5 % Platelet Count 282 TH/MM3 Mean Platelet Volume 7.6 FL Neutrophils (%) (Auto) 60.3 % Lymphocytes (%) (Auto) 30.3 % Monocytes (%) (Auto) 5.2 % Eosinophils (%) (Auto) 2.5 % Basophils (%) (Auto) 1.7 % Neutrophils # (Auto) 6.3 TH/MM3 Lymphocytes # (Auto) 3.2 TH/MM3 Monocytes # (Auto) 0.5 TH/MM3 Eosinophils # (Auto) 0.3 TH/MM3 Basophils # (Auto) 0.2 TH/MM3 CBC Comment DIFF FINAL Differential Comment Blood Urea Nitrogen 15 MG/DL Creatinine 1.00 MG/DL Random Glucose 94 MG/DL Calcium Level 8.6 MG/DL Sodium Level 139 MEQ/L Potassium Level 3.8 MEQ/L Chloride Level 105 MEQ/L Carbon Dioxide Level 28.7 MEQ/L Anion Gap 5 MEQ/L Estimat Glomerular Filtration Rate 87 ML/MIN MDM Medical Decision Making Medical Screen Exam Complete: Yes Emergency Medical Condition: Yes Medical Record Reviewed: Yes Differential Diagnosis cerebral aneurysm, atypical migraine, ICH Narrative Course I have reviewed the patient's electronic medical record. Patient was seen here for head and neck pain in March 2017 and had negative brain CT No objective neurologic deficit on exam. Patient has a family history of cerebral aneurysm as specifically wanting to rule that out. Presentation is somewhat atypical but cannot be done without heavy-duty imaging. I've ordered lab studies and brain CT and CTA of the brain to evaluate for potential aneurysm Brain CT is negative CBC normal Metabolic profile normal CT of the brain is normal Stable for outpatient follow-up with primary care There is no aneurysm. He is stable for outpatient follow-up. I suspect most likely has a variant of atypical migraine. No objective evidence or suspicion of CVA. Diagnosis Primary Impression: Exertional headache Additional Impressions: Family history of cerebral aneurysm Left facial numbness Additional Instructions: The patient was advised to follow up with their physician and return if they worsen. Med/Other Pt SpecificInfo: Other Disposition: 01 DISCHARGE HOME Condition: Stable Antony Heredia MD Jun 23, 2017 17:31
[2017-06-23 17:46] LABS: POTASSIUM 3.8 MEQ/L (3.5-5.1)
[2017-06-23 17:49] LABS: BICARBONATE 28.7 MEQ/L (21.0-32.0)
[2017-06-23 17:53] VITALS: BP 130/71; PULSE 72; RESP 16; O2SAT 98
--- NOTE | 2017-06-23 18:00 | RADRPT ---
EXAM DATE/TIME: 06/23/2017 17:25 [facility] COMPARISON: CT BRAIN W/O CONTRAST, April 11, 2017, 17:25. INDICATIONS : Throbbing headache when he bends over, or coughs. RADIATION DOSE: 66.04 CTDIvol (mGy) MEDICAL HISTORY : Cerebrovascular disease. Cardiovascular disease Afib PTSD SURGICAL HISTORY : Spine for fracture. ENCOUNTER: Initial ACUITY: 1 day PAIN SCALE: 8/10 LOCATION: Bilateral cranial TECHNIQUE: Multiple contiguous axial images were obtained of the head. Using automated exposure control and adj ustment of the mA and/or kV according to patient size, radiation dose was kept as low as reasonably a chievable to obtain optimal diagnostic quality images. DICOM format image data is available electro nically for review and comparison. FINDINGS: CEREBRUM: The ventricles are normal for age. No evidence of midline shift, mass lesion, hemorrhage or acute in farction. No extra-axial fluid collections are seen. POSTERIOR FOSSA: The cerebellum and brainstem are intact. The 4th ventricle is midline. The cerebellopontine angle i s unremarkable. EXTRACRANIAL: Mild partial opacification ethmoid sinuses. SKULL: The calvaria is intact. No evidence of skull fracture. CONCLUSION: Mild ethmoid sinus disease. No acute intracranial findings. Carlos Enrique Reynaga MD on June 23, 2017 at 17:57 Board Certified Radiologist. This report was verified electronically.
[2017-06-23] MEDS ORDERED: IOHEXOL 350 MG/ML 10 ML VIAL (for RAD DIAG) IVCONTRAST ONE (18:05)
--- NOTE | 2017-06-23 18:39 | RADRPT ---
EXAM DATE/TIME: 06/23/2017 17:28 [facility] COMPARISON: No previous studies available for comparison. INDICATIONS : Throbbing headache when patient bends over of coughs. IV CONTRAST: 96 cc Omnipaque 350 (iohexol) IV RADIATION DOSE: 42.69 CTDIvol (mGy) MEDICAL HISTORY : Cerebrovascular disease. Cardiovascular disease Afib, PTSD SURGICAL HISTORY : For fracture cspine ENCOUNTER: Initial ACUITY: 1 day PAIN SCALE: 8/10 LOCATION: Bilateral cranial TECHNIQUE: Volumetric scanning was performed using a multi-row detector CT scanner. The data was post processed with a variety of visualization algorithms including full volume maximum intensity projection, multi -planar sliding thin slab reformation, curved planar reformation, and surface rendering techniques. Using automated exposure control and adjustment of the mA and/or kV according to patient size, radiat ion dose was kept as low as reasonably achievable to obtain optimal diagnostic quality images. DICO M format image data is available electronically for review and comparison. FINDINGS: There is excellent visualization of the major intracranial arteries out to the second-order branch ve ssels. There is no evidence for aneurysm, vessel truncation or stenosis, and no evidence for vascula r malformation. CONCLUSION: Brain CTA within normal limits. Carlos Enrique Reynaga MD on June 23, 2017 at 18:33 Board Certified Radiologist. This report was verified electronically.
[2017-06-23 18:43] VITALS: BP 120/72; PULSE 76; RESP 16; O2SAT 98
== END 2017-06-23 18:57 | disposition home or self-care (01) ==
LOC: PHED 16:33
DX: G44.84 Primary exertional headache (principal); R20.0 Anesthesia of skin; I48.91 Unspecified atrial fibrillation; Z86.73 Personal history of transient ischemic attack (TIA), and cerebral infarction without residual deficits; Z79.82 Long term (current) use of aspirin
CPT/HCPCS: 70450; 70496; 80048; 85025; 99285; Q9967

== ENCOUNTER 2017-06-27 04:14 | Observation (INO) | payer MEDICARE, MEDICAID ==
[~2017-06-27] VITALS: Ht 182.9 cm; Wt 125.0 kg
[2017-06-27] VITALS (10 sets, daily range): BP systolic 113–135; BP diastolic 59–81; PULSE 58–82; RESP 16–18; TEMP 97.6–98.7; O2SAT 95–100
[~2017-06-27 04:14] MED LIST changes: -ABIL2TAB2 PO; -FLUT1SPR5 EACH NARE
[2017-06-27] MEDS ORDERED: ASPIRIN 81 MG CHEW TAB PO ONE (05:15)
[2017-06-27] MEDS ORDERED: SODIUM CHLORIDE 0.9% FLUSH 10 ML FLUSH IVF PRN (05:15)
--- NOTE | 2017-06-27 06:03 | RADRPT ---
EXAM DATE/TIME: 06/27/2017 05:12 [facility] COMPARISON: No previous studies available for comparison. INDICATIONS : Chest pain. MEDICAL HISTORY : Cerebrovascular disease. Cardiovascular disease Afib, PTSD, Cervical spine fracture SURGICAL HISTORY : Spinal surgery ENCOUNTER: Initial ACUITY: 1 day PAIN SCORE: 8/10 LOCATION: Bilateral chest FINDINGS: A single view of the chest demonstrates the lungs to be symmetrically aerated without evidence of mas s, infiltrate or effusion. The cardiomediastinal contours are unremarkable. Osseous structures are intact. CONCLUSION: No acute disease. Xavier Stark MD on June 27, 2017 at 6:02 Board Certified Radiologist. This report was verified electronically.
[2017-06-27 06:05] LABS: AUTOMATED NEUTROPHIL # 6.2 TH/MM3 (1.8-7.7); BASOPHIL # 0.1 TH/MM3 (0-0.2); BASOPHIL % 0.5 % (0.0-2.0); EOSINOPHIL # 0.4 TH/MM3 (0-0.4); EOSINOPHIL % 3.2 % (0.0-4.0); HEMATOCRIT 42.2 % (39.0-51.0); LYMPH % 41.1 % (9.0-44.0); LYMPHOCYTE # 5.3 TH/MM3 (1.0-4.8); MEAN CELL VOLUME 87.2 FL (80.0-100.0); MEAN CORPUSCULAR HGB CONC 34.4 % (32.0-36.0); MONO % 7.1 % (0.0-8.0); NEUT % 48.1 % (16.0-70.0); PLATELET COUNT 261 TH/MM3 (150-450); RED BLOOD COUNT 4.85 MIL/MM3 (4.50-5.90); RED CELL DISTRIBUTION WIDTH 12.8 % (11.6-17.2); WHITE BLOOD COUNT 12.8 TH/MM3 (4.0-11.0)
[2017-06-27] MEDS ORDERED: MORPHINE SULFATE 4 MG/ML INJ IV PUSH ONE (06:15)
[2017-06-27] MEDS ORDERED: ONDANSETRON HCL 4 MG/2 ML VIAL IV PUSH ONE (06:15)
[2017-06-27 06:16] LABS: APTT (PATIENT) 31.7 SEC (24.3-30.1); INTERNATIONAL NORMALIZED RATIO 0.9 RATIO; PROTHROMBIN TIME - PATIENT 10.3 SEC (9.8-11.6)
[2017-06-27 06:26] LABS: HEMO FLAGS DIFF FINAL
[2017-06-27 06:52] LABS: ALKALINE PHOSPHATASE 71 U/L (45-117); ALT (GPT) 39 U/L (12-78); ANION GAP 5 MEQ/L (5-15); AST (GOT) 22 U/L (15-37); BICARBONATE 28.8 MEQ/L (21.0-32.0); BLOOD UREA NITROGEN 15 MG/DL (7-18); CHLORIDE 103 MEQ/L (98-107); CREATINE KINASE 122 U/L (39-308); GLOMERULAR FILTRATION RATE 72 ML/MIN (>89); SODIUM (NA) 137 MEQ/L (136-145); TOTAL BILIRUBIN ADULT 0.2 MG/DL (0.2-1.0)
[2017-06-27 06:53] LABS: POTASSIUM 3.6 MEQ/L (3.5-5.1)
[2017-06-27 07:05] LABS: CKMB 0.8 NG/ML (0.5-3.6)
--- NOTE | 2017-06-27 07:33 | RADRPT ---
EXAM DATE/TIME: 06/27/2017 06:49 [facility] COMPARISON: CT BRAIN W/O CONTRAST, June 23, 2017, 17:25. INDICATIONS : Syncopal epidose. Laceration to forehead. Head and neck pain. RADIATION DOSE: 37.77 CTDIvol (mGy) MEDICAL HISTORY : Cardiovascular disease. Cervical spine fracture. SURGICAL HISTORY : Appendectomy. ENCOUNTER: Initial ACUITY: 1 day PAIN SCALE: 10/10 LOCATION: cranial TECHNIQUE: Multiple contiguous axial images were obtained of the head. Using automated exposure control and adj ustment of the mA and/or kV according to patient size, radiation dose was kept as low as reasonably a chievable to obtain optimal diagnostic quality images. DICOM format image data is available electro nically for review and comparison. FINDINGS: CEREBRUM: The ventricles are normal for age. No evidence of midline shift, mass lesion, hemorrhage or acute in farction. No extra-axial fluid collections are seen. POSTERIOR FOSSA: The cerebellum and brainstem are intact. The 4th ventricle is midline. The cerebellopontine angle i s unremarkable. EXTRACRANIAL: The visualized portion of the orbits is intact. SKULL: The calvaria is intact. No evidence of skull fracture. CONCLUSION: No acute disease. Chad Simon MD on June 27, 2017 at 7:31 Board Certified Radiologist. This report was verified electronically.
--- NOTE | 2017-06-27 07:35 | RADRPT ---
EXAM DATE/TIME: 06/27/2017 06:49 [facility] COMPARISON: CT CERVICAL SPINE W/O CONTRAST, April 11, 2017, 17:25. INDICATIONS : Syncopal epidose. Laceration to forehead. Head and neck pain. RADIATION DOSE: 32.83 CTDIvol (mGy) MEDICAL HISTORY : Cardiovascular disease. Cervical spine fracture. SURGICAL HISTORY : Appendectomy. ENCOUNTER: Initial ACUITY: 1 day PAIN SCALE: 10/10 LOCATION: neck TECHNIQUE: Volumetric scanning of the cervical spine was performed. Multiplanar reconstructions in the sagittal, coronal and oblique axial planes were performed. Using automated exposure control and adjustment o f the mA and/or kV according to patient size, radiation dose was kept as low as reasonably achievable to obtain optimal diagnostic quality images. DICOM format image data is available electronically f or review and comparison. FINDINGS: Axial tomograms with multiplanar reformats were performed of the cervical spine without contrast. The craniocervical and cervical vertebral body alignment is intact. Vertebral bodies and posterior el ements are intact. The facet joints are satisfactory aligned. There are no soft tissue abnormalities. CONCLUSION: Normal CT of the cervical spine. No evidence of acute bony or soft tissue trauma. Chad Simon MD on June 27, 2017 at 7:32 Board Certified Radiologist. This report was verified electronically.
[2017-06-27] MEDS ORDERED: IBUPROFEN 600 MG TAB PO ONE (08:00)
[2017-06-27] MEDS ORDERED: METHOCARBAMOL 500 MG TAB PO ONE (08:00)
--- NOTE | 2017-06-27 08:23 | PD ---
HPI Chief Complaint: Syncope/Near-Syncope Time Seen by Provider: 06:09 Travel History International Travel<30 days: No Contact w/Intl Traveler<30days: No Traveled to known affect area: No History of Present Illness HPI Patient is a 32-year-old male who comes in complaining of chest pain and a syncopal episode. He says that when he was 20 he had an MT. He has no history of stenting. He was told that he had cardiomyopathy and "scar tissue car is to his heart attack." He says that tonight he felt pain to the left side of his chest radiating down his left arm. He then passed out and hit his head. He complains of head and neck pain. He says that this feels like when he had a heart attack in the past. He admits to having one beer tonight. He denies any drug use. He says that stress causes his heart problems. PFSH Past Medical History Hx Anticoagulant Therapy: Yes (BABY ASA DAILY) Atrial Fibrillation: Yes (anxiety induced PER PT.) Anxiety: Yes Depression: Yes Cardiovascular Problems: Yes (AFIB) Cerebrovascular Accident: Yes (PER PT WHILE ON ACTIVE DUTY) Diminished Hearing: No Psychiatric: Yes (anxiety and PTSD) Myocardial Infarction: Yes (AGE 20) Tetanus Vaccination: > 5 Years Influenza Vaccination: No Past Surgical History Appendectomy: Yes Social History Alcohol Use: Yes (SHOT WHISKEY THIS AFTERNOON) Tobacco Use: Yes (chewing tob) Substance Use: No Allergies-Medications (Allergen,Severity, Reaction): Coded Allergies: codeine (Verified Allergy, Unknown, "ATRIAL FIB", 06/27/17) penicillin G (Verified Allergy, Unknown, Hives, 06/27/17) Reported Meds & Prescriptions Reported Meds & Active Scripts Active Zyrtec (Cetirizine HCl) 10 Mg Capsule 10 Cap PO DAILY Soma (Carisoprodol) 350 Mg Tab 350 Mg PO QID PRN Reported Aspirin Low Dose (Aspirin) 81 Mg Chew 81 Mg CHEW DAILY Xanax (Alprazolam) 1 Mg Tab 1 Mg PO Q6H PRN Review of Systems Except as stated in HPI: all other systems reviewed are Neg General / Constitutional: No: Fever, Chills Eyes: No: Blurred Vision HENT: Positive: Headaches Cardiovascular: Positive: Chest Pain or Discomfort, Palpitations Respiratory: Positive: Shortness of Breath Gastrointestinal: No: Nausea, Vomiting Musculoskeletal: Positive: Pain Neurologic: Positive: Syncope, No: Weakness, Dizziness Physical Exam Narrative GENERAL: Awake and alert, in no acute distress. SKIN: Focused skin assessment warm/dry. Superficial laceration to the results of the forehead. HEAD: Atraumatic. Normocephalic. EYES: Pupils equal and round. No scleral icterus. Extraocular movements intact. ENT: No nasal bleeding or discharge. Mucous membranes pink and moist. NECK: Trachea midline. No JVD. Tender to palpation of the cervical spine. CARDIOVASCULAR: Regular rate and rhythm. No murmur appreciated. RESPIRATORY: No accessory muscle use. Clear to auscultation. Breath sounds equal bilaterally. GASTROINTESTINAL: Abdomen soft, non-tender, nondistended. MUSCULOSKELETAL: No obvious deformities. No clubbing. No cyanosis. No edema. NEUROLOGICAL: Awake and alert. No obvious cranial nerve deficits. Motor grossly within normal limits. Normal speech. PSYCHIATRIC: Appropriate mood and affect; insight and judgment normal. Data Data Last Documented VS Vital Signs Date Time Temp Pulse Resp B/P (MAP) Pulse Ox O2 Delivery O2 Flow Rate FiO2 06/27/17 06:40 16 06/27/17 06:37 82 122/59 (80) 100 06/27/17 06:00 Nasal Cannula 2.00 06/27/17 05:50 98.7 Orders Orders Ckmb (Isoenzyme) Profile (06/27/17 05:09) Complete Blood Count With Diff (06/27/17 05:09) Comprehensive Metabolic Panel (06/27/17 05:09) Prothrombin Time / Inr (Pt) (06/27/17 05:09) Act Partial Throm Time (Ptt) (06/27/17 05:09) Troponin I (06/27/17 05:09) Chest, Single Ap (06/27/17 05:09) Ecg Monitoring (06/27/17 05:09) Bilateral Bp Monitoring (06/27/17 05:09) Iv Access Insert/Monitor (06/27/17 05:09) Oximetry (06/27/17 05:09) Oxygen Administration (06/27/17 05:09) Aspirin Chew (Aspirin Chew) (06/27/17 05:15) Sodium Chloride 0.9% Flush (Ns Flush) (06/27/17 05:15) Ct Brain W/O Iv Contrast(Rout) (06/27/17 ) Ct Cerv Spine W/O Contrast (06/27/17 ) Morphine Inj (Morphine Inj) (06/27/17 06:15) Ondansetron Inj (Zofran Inj) (06/27/17 06:15) CKMB (06/27/17 05:50) CKMB% (06/27/17 05:50) Electrocardiogram (06/27/17 ) Ibuprofen (Motrin) (06/27/17 08:00) Methocarbamol (Robaxin) (06/27/17 08:00) Admit Order (Ed Use Only) (06/27/17 ) Labs Laboratory Tests Test 06/27/17 05:50 White Blood Count 12.8 TH/MM3 Red Blood Count 4.85 MIL/MM3 Hemoglobin 14.5 GM/DL Hematocrit 42.2 % Mean Corpuscular Volume 87.2 FL Mean Corpuscular Hemoglobin 30.0 PG Mean Corpuscular Hemoglobin Concent 34.4 % Red Cell Distribution Width 12.8 % Platelet Count 261 TH/MM3 Mean Platelet Volume 8.8 FL Neutrophils (%) (Auto) 48.1 % Lymphocytes (%) (Auto) 41.1 % Monocytes (%) (Auto) 7.1 % Eosinophils (%) (Auto) 3.2 % Basophils (%) (Auto) 0.5 % Neutrophils # (Auto) 6.2 TH/MM3 Lymphocytes # (Auto) 5.3 TH/MM3 Monocytes # (Auto) 0.9 TH/MM3 Eosinophils # (Auto) 0.4 TH/MM3 Basophils # (Auto) 0.1 TH/MM3 CBC Comment DIFF FINAL Differential Comment Prothrombin Time 10.3 SEC Prothromb Time International Ratio 0.9 RATIO Activated Partial Thromboplast Time 31.7 SEC Blood Urea Nitrogen 15 MG/DL Creatinine 1.18 MG/DL Random Glucose 96 MG/DL Total Protein 7.9 GM/DL Albumin 3.7 GM/DL Calcium Level 8.6 MG/DL Alkaline Phosphatase 71 U/L Aspartate Amino Transf (AST/SGOT) 22 U/L Alanine Aminotransferase (ALT/SGPT) 39 U/L Total Bilirubin 0.2 MG/DL Sodium Level 137 MEQ/L Potassium Level 3.6 MEQ/L Chloride Level 103 MEQ/L Carbon Dioxide Level 28.8 MEQ/L Anion Gap 5 MEQ/L Estimat Glomerular Filtration Rate 72 ML/MIN Total Creatine Kinase 122 U/L Creatine Kinase MB 0.8 NG/ML Troponin I LESS THAN 0.02 NG/ML MDM Medical Decision Making Medical Screen Exam Complete: Yes Emergency Medical Condition: Yes Medical Record Reviewed: Yes Interpretation(s) ECG shows normal sinus rhythm at 82, no ST elevation or depression, normal intervals. Differential Diagnosis ACS versus NSTEMI versus STEMI versus syncope Narrative Course Patient is a 32-year-old male comes in complaining of chest pain and a syncopal episode. Exam shows a superficial abrasion to the forehead, as well as neck tenderness. IV established, labs sent. Patient connected to hydropulper operator. Labs show no acute abnormalities. Troponin is negative. CT head and C-spine performed show no acute abnormalities. Patient given aspirin and morphine. He says that this made him feel "weird." He says he still has a headache and neck pain and would like something else. Patient given ibuprofen and Robaxin. Patient will be placed in chest pain center for further management. Diagnosis Primary Impression: Chest pain Qualified Codes: R07.9 - Chest pain, unspecified Admitting Information Admitting Physician Requests: Juhi Solitario MD Jun 27, 2017 08:23
[2017-06-27] MEDS ORDERED: ONDANSETRON HCL 4 MG/2 ML VIAL IV PRN (09:45)
[2017-06-27] MEDS ORDERED: oxyCODONE/ACETAMINOPHEN 7.5 MG/325 MG TAB PO PRN (09:45)
[2017-06-27] MEDS ORDERED: SODIUM CHLORIDE 0.9% FLUSH 5 ML FLUSH IVF PRN (09:45)
[2017-06-27] MEDS ORDERED: ACETAMINOPHEN 500 MG CPLT PO PRN (09:45)
[2017-06-27] MEDS ORDERED: ALPRAZolam 1 MG TAB PO PRN (10:00)
--- NOTE | 2017-06-27 10:00 | HHI.HP ---
HPI Primary Care Physician Unknown Chief Complaint Chest pain and syncope History of Present Illness This is a 32-year-old male that presents to ED via [facility] with a complaint of chest pain and syncopal episode. Patient states that he was watching television last evening and began to feel short of breath. He decided he should go to the bathroom. While walking to the bathroom he felt arm became numb and then developed a discomfort from left axillary region rating into the left chest. He became diaphoretic and dizzy. Then suddenly passed out. He states that his or the thump on the floor and told him that he was out for 2 minutes. No observed still of seizures. States he hit his head on a chair. Has chronic neck pain but states his neck is bothering him more so and has also chronic headache and is complaining of a headache. Denies incontinence. Denies weakness in extremities at this time. States he was told he had a myocardial infarction age 20. Cannot recall having a cardiac catheterization. Also has history of paroxysmal atrial fibrillation and is [facility]. States he can tell when he goes in atrial fibrillation and did not since I last night. States last episode he believes was 3 weeks ago. He states he takes a baby aspirin for the paroxysmal atrial fibrillation. Patient states that he is active. He states he goes to the [employer] and lifts weights stating he can bench 350 pounds. He also states that he runs on the treadmill with 25 pounds weight attached to him. Review of Systems General: Patient denies fevers, chills recent, and recent travel HEENT: Patient denies headache, sore throat, difficulty swallowing. Cardiovascular: Has the chest discomfort as mentioned above. Denies sensation of heart beating rapidly or irregularly. Had syncopal episode. He was diaphoretic. Respiratory: He was short of breath. Denies inspirational chest discomfort. Denies coughing wheezing or hemoptysis. GI: Patient denies nausea, vomiting, diarrhea, abdominal pain, bloody stools. Musculoskeletal: Chronic neck pain. Patient denies joint pain or edema. Denies calf pain or edema. Neurovascular: Patient denies numbness, tingling, weakness in extremities. Chronic headaches. Endocrine: Denies polyuria and polydipsia. Hematologic: Denies easy bruising. Skin: Denies rash or itching. Past Family Social History Allergies: Coded Allergies: codeine (Verified Allergy, Unknown, "ATRIAL FIB", 06/27/17) penicillin G (Verified Allergy, Unknown, Hives, 06/27/17) Past Medical History States he had a myocardial infarction is 20. Fracture neck of each 14 with chronic neck pain and headache. PTSD. Denies hypertension, hyperlipidemia, diabetes. Past Surgical History Appendectomy. Reported Medications Reported Meds & Active Scripts Active Zyrtec (Cetirizine HCl) 10 Mg Capsule 10 Cap PO DAILY Soma (Carisoprodol) 350 Mg Tab 350 Mg PO QID PRN Reported Aspirin Low Dose (Aspirin) 81 Mg Chew 81 Mg CHEW DAILY Xanax (Alprazolam) 1 Mg Tab 1 Mg PO Q6H PRN Active Ordered Medications Current Medications Medications (Trade) Dose Ordered Sig/Carrillo Route Start Time Stop Time Status Last Admin (NS Flush) 2 ml UNSCH PRN IVF 06/27/17 05:15 06/27/17 06:03 (NS Flush) 2 ml UNSCH PRN IVF 06/27/17 09:45 UNV (NS Flush) 2 ml BID IVF 06/27/17 21:00 UNV (Tylenol) 500 mg Q4H PRN PO 06/27/17 09:45 UNV (Zofran Inj) 4 mg Q6H PRN IV 06/27/17 09:45 UNV (Aspirin) 325 mg DAILY PO 06/28/17 09:00 UNV (Percocet 7.5-325 Mg) 1 tab Q4H PRN PO 06/27/17 09:45 UNV (Xanax) 1 mg Q8HR PRN PO 06/27/17 10:00 UNV (Soma) 350 mg QID PRN PO 06/27/17 10:00 UNV Family History Denies family history of CAD. Social History Patient smokes on average 4 cigarettes a month. He drinks maybe 4-5 beers per month. He denies illicit drugs. States he has a disability. Physical Exam Vital Signs Vital Signs Date Time Temp Pulse Resp B/P (MAP) Pulse Ox O2 Delivery O2 Flow Rate FiO2 06/27/17 06:40 16 06/27/17 06:37 82 16 122/59 (80) 100 06/27/17 06:00 71 18 122/59 (80) 100 Nasal Cannula 2.00 06/27/17 06:00 100 Nasal Cannula 2.00 06/27/17 05:55 76 19 98 Nasal Cannula 5.00 06/27/17 05:50 98.7 71 18 135/60 (85) 98 Physical Exam GENERAL: This is a well-nourished, well-developed patient, in no apparent distress. Patient speaks in clear complete sentences. Patient is pleasant but does seem to be a little anxious. HEENT: Head is atraumatic and normocephalic. Neck is supple without lymphadenopathy and trachea is midline. No JVD or carotid bruits. CARDIOVASCULAR: Regular rate and rhythm without murmurs, gallops, or rubs. RESPIRATORY: Clear to auscultation. Breath sounds equal bilaterally. No wheezes , rales, or rhonchi. Chest wall is nontender. No use of accessory muscles. GASTROINTESTINAL: Abdomen is nontender, nondistended. Abdomen soft. No obvious pulsatile mass or bruit. No CVA tenderness. Strong femoral pulses bilaterally. Normal bowel sounds in all quadrants. MUSCULOSKELETAL: Patient is moving upper and lower extremities freely. No calf tenderness or edema, no Homans sign. Strong pulses in upper and lower extremities. NEUROLOGICAL: Patient is alert and oriented. Cranial nerves 2-12 are grossly intact. No focal deficits and speech is clear. SKIN: No rash and turgor is normal. Laboratory Laboratory Tests Test 06/27/17 05:50 White Blood Count 12.8 Red Blood Count 4.85 Hemoglobin 14.5 Hematocrit 42.2 Mean Corpuscular Volume 87.2 Mean Corpuscular Hemoglobin 30.0 Mean Corpuscular Hemoglobin Concent 34.4 Red Cell Distribution Width 12.8 Platelet Count 261 Mean Platelet Volume 8.8 Neutrophils (%) (Auto) 48.1 Lymphocytes (%) (Auto) 41.1 Monocytes (%) (Auto) 7.1 Eosinophils (%) (Auto) 3.2 Basophils (%) (Auto) 0.5 Neutrophils # (Auto) 6.2 Lymphocytes # (Auto) 5.3 Monocytes # (Auto) 0.9 Eosinophils # (Auto) 0.4 Basophils # (Auto) 0.1 CBC Comment DIFF FINAL Differential Comment Prothrombin Time 10.3 Prothromb Time International Ratio 0.9 Activated Partial Thromboplast Time 31.7 Blood Urea Nitrogen 15 Creatinine 1.18 Random Glucose 96 Total Protein 7.9 Albumin 3.7 Calcium Level 8.6 Alkaline Phosphatase 71 Aspartate Amino Transf (AST/SGOT) 22 Alanine Aminotransferase (ALT/SGPT) 39 Total Bilirubin 0.2 Sodium Level 137 Potassium Level 3.6 Chloride Level 103 Carbon Dioxide Level 28.8 Anion Gap 5 Estimat Glomerular Filtration Rate 72 Total Creatine Kinase 122 Creatine Kinase MB 0.8 Troponin I LESS THAN 0.02 Result Diagram: 06/27/17 0550 06/27/17 0550 Imaging Last 48 hours Impressions Chest X-Ray 06/27/17 0509 Signed Impressions: Service Date/Time: Tuesday, June 27, 2017 05:12 - CONCLUSION: No acute disease. Xavier Stark MD Head CT 06/27/17 0000 Signed Impressions: Service Date/Time: Tuesday, June 27, 2017 06:49 - CONCLUSION: No acute disease. Chad Simon MD Cervical Spine CT 06/27/17 0000 Signed Impressions: Service Date/Time: Tuesday, June 27, 2017 06:49 - CONCLUSION: Normal CT of the cervical spine. No evidence of acute bony or soft tissue trauma. Chad Simon MD Course Initial EKG has sinus rhythm without significant ST segment depressions or elevations. Caprini VTE Risk Assessment Caprini VTE Risk Assessment: No/Low Risk (score <= 1) Caprini Risk Assessment Model Point Value = 1 Point Value = 2 Point Value = 3 Point Value = 5 Age 41-60 Minor surgery BMI > 25 kg/m2 Swollen legs Varicose veins or History of unexplained or recurrent spontaneous Oral contraceptives or hormone replacement Sepsis (< 1 month) Serious lung disease, including pneumonia (< 1 month) Abnormal pulmonary function Acute myocardial infarction Congestive heart failure (< 1 month) History of inflammatory bowel disease Medical patient at bed rest Age 61-74 Arthroscopic surgery Major open surgery (> 45 min) Laparoscopic surgery (> 45 min) Malignancy Confined to bed (> 72 hours) Immobilizing plaster cast Central venous access Age >= 75 History of VTE Family history of VTE Factor V Leiden Prothrombin [id number] Lupus anticoagulant Anticardiolipin antibodies Elevated serum homocysteine Heparin-induced thrombocytopenia Other congenital or acquired thrombophilia Stroke (< 1 month) Elective arthroplasty Hip, pelvis, or leg fracture Acute spinal cord injury (< 1 month) Prophylaxis Regimen Total Risk Factor Score Risk Level Prophylaxis Regimen 0-1 Low Early ambulation 2 Moderate Order ONE of the following: *Sequential Compression Device (SCD) *Heparin 5000 units SQ BID 3-4 Higher Order ONE of the following medications: *Heparin 5000 units SQ TID *Enoxaparin/Lovenox 40 mg SQ daily (WT < 150 kg, CrCl > 30 mL/min) *Enoxaparin/Lovenox 30 mg SQ daily (WT < 150 kg, CrCl > 10-29 mL/min) *Enoxaparin/Lovenox 30 mg SQ BID (WT < 150 kg, CrCl > 30 mL/min) AND/OR *Sequential Compression Device (SCD) 5 or more Highest Order ONE of the following medications: *Heparin 5000 units SQ TID (Preferred with Epidurals) *Enoxaparin/Lovenox 40 mg SQ daily (WT < 150 kg, CrCl > 30 mL/min) *Enoxaparin/Lovenox 30 mg SQ daily (WT < 150 kg, CrCl > 10-29 mL/min) *Enoxaparin/Lovenox 30 mg SQ BID (WT < 150 kg, CrCl > 30 mL/min) AND *Sequential Compression Device (SCD) Assessment and Plan Assessment and Plan * Chest pain: Patient had first troponin that is normal. First and second EKG had no significant ST changes. Discuss with Dr. Khari Ya and patient will undergo a Alexei protocol ETT at this time. Further plan pending results of stress test, likely patient be discharged home if stress test is nonischemic. * PTSD: Continue current medication. * Chronic neck pain and headache: Patient follow-up with his physician. Continue medication. Patient is stable at this time. He is agreeable to this plan. Adam Padilla Jun 27, 2017 10:00
[2017-06-27] MEDS: CARISOPRODOL 350 MG TAB PO PRN ×2 (12:37→12:45)
--- NOTE | 2017-06-27 16:35 | HHI.DCPOC ---
Discharge Care Plan Diagnosis: (1) Chest pain Goals to Promote Your Health * To prevent worsening of your condition and complications * To maintain your health at the optimal level Directions to Meet Your Goals Take your medications as prescribed Follow your dietary instruction Follow activity as directed Keep your appointments as scheduled Take your immunizations and boosters as scheduled If your symptoms worsen call your PCP, if no PCP go to Urgent Care Center or Emergency Room Smoking is Dangerous to Your Health. Avoid second hand smoke Call the 24-hour hour crisis hotline for domestic abuse at Adam Padilla Jun 27, 2017 16:35
--- NOTE | 2017-06-27 16:37 | EKG ---
Date Performed: 06/27/2017 Time Performed: 04:23:47 PTAGE: 32 years EKG: Sinus rhythm NORMAL ECG NO PREVIOUS TRACING DOCTOR: Khari Ya Interpretating Date/Time 06/27/2017 16:35:37
[2017-06-27] MEDS ORDERED: SODIUM CHLORIDE 0.9% FLUSH 5 ML FLUSH IVF SCH (21:00)
--- NOTE | 2017-06-27 21:05 | EKG ---
Date Performed: 06/27/2017 Time Performed: 09:37:45 PTAGE: 32 years EKG: Sinus rhythm NORMAL ECG Compared to prior tracing no significant change DOCTOR: Melvi Peralta Interpretating Date/Time 06/27/2017 21:05:02
[2017-06-28] MEDS ORDERED: ASPIRIN 325 MG TAB PO SCH (09:00)
--- NOTE | 2017-06-28 16:04 | TR ---
Date Performed: 06/27/2017 Time Performed: 10:05:36 DOCTOR: Michael Lawler DRUG LIST: CLINICAL HISTORY: REASON FOR TEST: REASON FOR ENDING: OBSERVATION: CONCLUSION: JOSLYN PROTOCOL. NO CP. TEST STOPPED SECONDARY TO SOB.Maximum RN=621 % Max HR Achieve d=94.0% Maximum CV=655/86 Total Exercise Time=9:00 COMMENTS: Conclusion: Normal treadmill exercise. No evidence of ischemia.
== END 2017-06-27 17:42 | disposition home or self-care (01) ==
LOC: NEPE 04:14 → NEDA 08:17 → NEPHCDU 09:48
PROVIDERS: ADMIT Internal Medicine Cardiovascular Disease; ATTEND Internal Medicine Cardiovascular Disease
DX: R07.9 Chest pain, unspecified (principal); R55 Syncope and collapse; F43.10 Post-traumatic stress disorder, unspecified; M54.2 Cervicalgia; G89.29 Other chronic pain; I42.9 Cardiomyopathy, unspecified; I48.0 Paroxysmal atrial fibrillation; S00.81XA Abrasion of other part of head, initial encounter; F17.210 Nicotine dependence, cigarettes, uncomplicated; Z86.73 Personal history of transient ischemic attack (TIA), and cerebral infarction without residual deficits
CPT/HCPCS: 70450; 71010; 72125; 80053; 82550; 82552; 84484; 85025; 85610; 85730; 93005; 93017; 96374; 96375; 99285; G0378; J2270; J2405

== ENCOUNTER 2017-08-27 20:27 | Emergency (ER) | payer MEDICARE, MEDICAID ==
[~2017-08-27] VITALS: Ht 180.3 cm; Wt 127.0 kg
[~2017-08-27 20:27] MED LIST changes: -ASPI81CH37 CHEW; +ASPI81CH6 CHEW
[2017-08-27 20:32] VITALS: BP 154/80; PULSE 92; RESP 20; TEMP 98
--- NOTE | 2017-08-27 21:56 | PD ---
HPI Chief Complaint: Flank/Kidney Pain Time Seen by Provider: 21:39 Travel History International Travel<30 days: No Contact w/Intl Traveler<30days: No Traveled to known affect area: No History of Present Illness HPI 32yo M with PMH of anxiety presents to the ED with c/o right flank pain that started today. Said it radiates down to the right abdomen region. Associated with nausea. Moving and different positions worsens the pain. Ibuprofen helps the pain a little. +Dysuria and dark urine. Denies any fever, chest pain, sob , vomiting, penile discharge or penile rash. PSH include appendectomy. PFSH Past Medical History Hx Anticoagulant Therapy: Yes (BABY ASA DAILY) Atrial Fibrillation: Yes (anxiety induced PER PT.) Anxiety: Yes Depression: Yes Heart Rhythm Problems: Yes (afib) Cardiac Catheterization: No Cardiovascular Problems: Yes (AFIB) High Cholesterol: No Cerebrovascular Accident: Yes (PER PT WHILE ON ACTIVE DUTY) Diabetes: Yes (pre-diabetic) Diminished Hearing: No Psychiatric: Yes (anxiety and PTSD) Myocardial Infarction: Yes (AGE 20) Past Surgical History Appendectomy: Yes Coronary Artery Bypass Graft: No Social History Alcohol Use: Yes (SHOT WHISKEY THIS AFTERNOON) Tobacco Use: Yes (chewing tob) Substance Use: No Allergies-Medications (Allergen,Severity, Reaction): Coded Allergies: codeine (Verified Allergy, Unknown, "ATRIAL FIB", 08/27/17) ketorolac (Verified Allergy, Unknown, PANIC , 08/27/17) penicillin G (Verified Allergy, Unknown, Hives, 08/27/17) Reported Meds & Prescriptions Reported Meds & Active Scripts Active Reported Aspirin Low Dose (Aspirin) 81 Mg Chew 81 Mg CHEW DAILY Xanax (Alprazolam) 1 Mg Tab 2 Mg PO TID PRN PRN Review of Systems Except as stated in HPI: all other systems reviewed are Neg Physical Exam Narrative GENERAL: 32yo M in mild distress. SKIN: Focused skin assessment warm/dry. HEAD: Atraumatic. Normocephalic. CARDIOVASCULAR: Regular rate and rhythm. No murmur appreciated. RESPIRATORY: No accessory muscle use. Clear to auscultation. Breath sounds equal bilaterally. GASTROINTESTINAL: Abdomen soft, +TTP right flank. No rebound tenderness or guarding. BACK: No midline ttp thoracic or lumbar spine. +CVA right. : Bilateral testicles descended equally. No ttp bilateral testicles. No penile rash or discharge. MUSCULOSKELETAL: No obvious deformities. No clubbing. No cyanosis. No edema. NEUROLOGICAL: Awake and alert. No obvious cranial nerve deficits. Motor grossly within normal limits. Normal speech. Data Data Last Documented VS Vital Signs Date Time Temp Pulse Resp B/P (MAP) Pulse Ox O2 Delivery O2 Flow Rate FiO2 08/27/17 22:00 20 08/27/17 20:32 98.0 92 154/80 (104) Orders Orders Basic Metabolic Panel (Bmp) (08/27/17 21:46) Complete Blood Count With Diff (08/27/17 21:46) Lipase (08/27/17 21:46) Urinalysis - C+S If Indicated (08/27/17 21:46) Ct Abd/Pel W/O Iv Contrast (08/27/17 21:46) Ondansetron Inj (Zofran Inj) (08/27/17 22:00) Oxycodone-Acetamin 5-325 Mg (Percocet (08/27/17 22:00) Oxycodone-Acetamin 5-325 Mg (Percocet (08/27/17 23:30) Labs Laboratory Tests Test 08/27/17 22:10 White Blood Count 10.8 TH/MM3 Red Blood Count 4.75 MIL/MM3 Hemoglobin 13.8 GM/DL Hematocrit 40.7 % Mean Corpuscular Volume 85.7 FL Mean Corpuscular Hemoglobin 29.1 PG Mean Corpuscular Hemoglobin Concent 33.9 % Red Cell Distribution Width 12.2 % Platelet Count 262 TH/MM3 Mean Platelet Volume 7.8 FL Neutrophils (%) (Auto) 58.2 % Lymphocytes (%) (Auto) 32.8 % Monocytes (%) (Auto) 5.8 % Eosinophils (%) (Auto) 2.5 % Basophils (%) (Auto) 0.7 % Neutrophils # (Auto) 6.2 TH/MM3 Lymphocytes # (Auto) 3.6 TH/MM3 Monocytes # (Auto) 0.6 TH/MM3 Eosinophils # (Auto) 0.3 TH/MM3 Basophils # (Auto) 0.1 TH/MM3 CBC Comment DIFF FINAL Differential Comment Urine Color YELLOW Urine Turbidity CLEAR Urine pH 7.0 Urine Specific [place] 1.021 Urine Protein NEG mg/dL Urine Glucose (UA) NEG mg/dL Urine Ketones NEG mg/dL Urine Occult Blood NEG Urine Nitrite NEG Urine Bilirubin NEG Urine Leukocyte Esterase NEG Urine WBC 0-2 /hpf Urine Squamous Epithelial Cells 0-5 /hpf Urine Amorphous Sediment FEW Microscopic Urinalysis Comment CULT NOT INDICATED Blood Urea Nitrogen 18 MG/DL Creatinine 1.00 MG/DL Random Glucose 106 MG/DL Calcium Level 8.7 MG/DL Sodium Level 139 MEQ/L Potassium Level 3.9 MEQ/L Chloride Level 105 MEQ/L Carbon Dioxide Level 27.5 MEQ/L Anion Gap 7 MEQ/L Estimat Glomerular Filtration Rate 87 ML/MIN Lipase 108 U/L [facility] Medical Decision Making Medical Screen Exam Complete: Yes Emergency Medical Condition: Yes Differential Diagnosis Nephrolithiasis vs. pyelonephritis vs. anxiety Narrative Course 32yo M with right sided back pain that radiates to right flank area. Pt is nontoxic appearing. Denies any IVDA. No focal neurologic deficits. Labs reviewed, no leukocytosis. BMP unremarkable. Lipase normal. UA showed no blood or leukocyte. Culture not indicated. CT a/p showed no acute disease. No renal stones are seen. Pt given percocet for pain and wants something stronger. States he does not want morphine and does not want a benzodiazepine because he takes xanax at home. I offered valium. The work up is negative and pt is well appearing. Pt now wants to go home. Return precautions given. Feel that pt can follow up as an outpatient. Diagnosis Primary Impression: Right flank pain Patient Instructions: General Instructions Departure Forms: Tests/Procedures Additional Instructions: Please follow up with your primary care physician tomorrow. Return to the ED if symptoms worsen. Med/Other Pt SpecificInfo: Prescription(s) given Scripts Acetaminophen (Tylenol) 325 Mg Tab 650 MG PO Q6H Y for PAIN SCALE 1 TO 4, #20 TAB 0 Refills Prov: Jinny Sosa 08/27/17 Disposition: 01 DISCHARGE HOME Condition: Stable SosaVicky zayasleo STARKS Aug 27, 2017 21:56
[2017-08-27] MEDS ORDERED: ONDANSETRON HCL 4 MG/2 ML VIAL IVP ONE (22:00)
[2017-08-27] MEDS ORDERED: oxyCODONE/ACETAMINOPHEN 5 MG/325 MG TAB PO ONE ×2 (22:00→23:30)
[2017-08-27 22:23] LABS: AUTOMATED NEUTROPHIL # 6.2 TH/MM3 (1.8-7.7); BASOPHIL # 0.1 TH/MM3 (0-0.2); BASOPHIL % 0.7 % (0.0-2.0); EOSINOPHIL # 0.3 TH/MM3 (0-0.4); EOSINOPHIL % 2.5 % (0.0-4.0); HEMATOCRIT 40.7 % (39.0-51.0); HEMO FLAGS DIFF FINAL; LYMPH % 32.8 % (9.0-44.0); LYMPHOCYTE # 3.6 TH/MM3 (1.0-4.8); MEAN CELL VOLUME 85.7 FL (80.0-100.0); MEAN CORPUSCULAR HEMOGLOBIN 29.1 PG (27.0-34.0); MEAN CORPUSCULAR HGB CONC 33.9 % (32.0-36.0); MONO % 5.8 % (0.0-8.0); NEUT % 58.2 % (16.0-70.0); PLATELET COUNT 262 TH/MM3 (150-450); RED BLOOD COUNT 4.75 MIL/MM3 (4.50-5.90); RED CELL DISTRIBUTION WIDTH 12.2 % (11.6-17.2); WHITE BLOOD COUNT 10.8 TH/MM3 (4.0-11.0)
[2017-08-27 22:24] LABS: BLOOD, URINE NEG (NEG); GLUCOSE,URINE NEG (NEG); KETONE, URINE NEG (NEG); NITRITE,URINE NEG (NEG)
[2017-08-27 22:33] LABS: SQUAMOUS EPITHELIAL CELL URINE 0-5 /hpf (0-5); URINE COLOR YELLOW (YELLW/STRAW); WBC, URINE 0-2 /hpf (0-5)
[2017-08-27 22:34] LABS: COMMENT (UR) CULT NOT INDICATED; CULTURE IF INDICATED CULT NOT INDICATED
[2017-08-27 22:50] LABS: POTASSIUM 3.9 MEQ/L (3.5-5.1)
[2017-08-27 22:53] LABS: BICARBONATE 27.5 MEQ/L (21.0-32.0)
--- NOTE | 2017-08-27 23:15 | RADRPT ---
EXAM DATE/TIME: 08/27/2017 22:16 [facility] COMPARISON: No previous studies available for comparison. INDICATIONS : Right flank pain. ORAL CONTRAST: No oral contrast ingested. RADIATION DOSE: 20.96 CTDIvol (mGy) MEDICAL HISTORY : None SURGICAL HISTORY : Appendectomy. ENCOUNTER: Initial ACUITY: 1 day PAIN SCALE: 10/10 LOCATION: Right flank TECHNIQUE: Volumetric scanning of the abdomen and pelvis was performed. Using automated exposure control and ad justment of the mA and/or kV according to patient size, radiation dose was kept as low as reasonably achievable to obtain optimal diagnostic quality images. DICOM format image data is available electro nically for review and comparison. FINDINGS: LOWER LUNGS: The visualized lower lungs are clear. LIVER: Homogeneous density without lesion. There is no dilation of the biliary tree. No calcified gallston es. SPLEEN: Normal size without lesion. PANCREAS: Within normal limits. KIDNEYS: Normal in size and shape. There is no mass, stone, or hydronephrosis. ADRENAL GLANDS: Within normal limits. VASCULAR: There is no aortic aneurysm. BOWEL/MESENTERY: The stomach, small bowel, and colon demonstrate no acute abnormality. There is no free intraperitone al air or fluid. There is metallic density seen at the inferior cecum likely from prior appendectomy. ABDOMINAL WALL: Within normal limits. RETROPERITONEUM: There is no lymphadenopathy. BLADDER: No wall thickening or mass. REPRODUCTIVE: Within normal limits. INGUINAL: There is no lymphadenopathy or hernia. MUSCULOSKELETAL: Within normal limits for patient age. CONCLUSION: No acute disease. No renal stones are seen. Mick Ya MD on August 27, 2017 at 23:12 Board Certified Radiologist. This report was verified electronically.
[2017-08-27] MEDS ORDERED: TYLE325T PO (23:37)
[2017-08-28] VITALS: BP 140/77; TEMP 98.1
== END 2017-08-28 00:32 | disposition home or self-care (01) ==
LOC: PHED 20:27
DX: R10.9 Unspecified abdominal pain (principal); I25.2 Old myocardial infarction; F43.10 Post-traumatic stress disorder, unspecified; Z79.82 Long term (current) use of aspirin; Z72.0 Tobacco use; Z86.73 Personal history of transient ischemic attack (TIA), and cerebral infarction without residual deficits
CPT/HCPCS: 74176; 80048; 81001; 83690; 85025; 96374; 99285; J2405

== ENCOUNTER 2017-10-05 21:56 | Emergency (ER) | payer MEDICARE, MEDICAID ==
[~2017-10-05] VITALS: Ht 182.9 cm; Wt 125.5 kg
[~2017-10-05 21:56] MED LIST changes: -CETI10CA3 PO; -SOMA350T PO; +TYLE325T PO
[2017-10-05 22:09] VITALS: BP 147/83; PULSE 97; TEMP 97.7; O2SAT 98
[2017-10-05] MEDS ORDERED: SOMA350T PO (22:27)
[2017-10-05] MEDS ORDERED: ALPR1TAB3 PO (22:27)
[2017-10-05 22:40] VITALS: BP 138/76; PULSE 59; RESP 18; O2SAT 94; O2SAT 95
[2017-10-05] MEDS ORDERED: SODIUM CHLORIDE 0.9% FLUSH 10 ML FLUSH IV FLUSH PRN (22:45)
--- NOTE | 2017-10-05 22:55 | PD ---
HPI Chief Complaint: Abdominal Pain Time Seen by Provider: 22:13 Travel History International Travel<30 days: No Contact w/Intl Traveler<30days: No Traveled to known affect area: No History of Present Illness HPI 32-year-old male presents to the emergency department for multiple complaints. Patient is out of [facility]. Patient has had intermittent arm tingling and pain. He is not having now she notices it primarily in his ulnar distribution of his forearm and digits especially with repetitive flexion and leaning on his arms when held in a position of flexion. Patient intermittently has neck pain. Patient has had no injury. Patient also times has intermittent abdominal discomfort. Patient states when he pushes on his abdominal wall feels like a bruise. Patient states he ask his mother and she states that he might have pancreatitis and to go the hospital. Patient's had no nausea no vomiting no hematemesis no coffee-ground emesis no fever no chills and pain does not radiate into the back. Patient does admit to alcohol use. Patient does have chronic muscle spasm. Patient also admits to anxiety. Patient states he has history of intermittent atrial fibrillation and takes an aspirin daily and is scheduled at some point to have what he thinks is an ablation study. Patient has not been having any palpitations no near-syncope or syncope and again denies any chest pain or shortness of breath sweats or referred neck jaw back shoulder arm pain. PFSH Past Medical History Hx Anticoagulant Therapy: Yes (BABY ASA DAILY) Atrial Fibrillation: Yes Anxiety: Yes Depression: Yes Heart Rhythm Problems: Yes Cardiac Catheterization: Yes Cardiovascular Problems: Yes (AFIB) High Cholesterol: No Cerebrovascular Accident: Yes (PER PT WHILE ON ACTIVE DUTY) Diabetes: Yes (pre-diabetic) Patient Takes Glucophage: No Diminished Hearing: No Hypertension: No Psychiatric: Yes (PTSD, ANXIETY) Immunizations Current: Yes Myocardial Infarction: Yes (AGE 20) Tetanus Vaccination: Unknown Influenza Vaccination: No Past Surgical History Appendectomy: Yes Coronary Artery Bypass Graft: No Family History Family Myocardial Infarction: Yes (paternal grandfather) Social History Alcohol Use: Yes Tobacco Use: No (DENIES) Substance Use: No Allergies-Medications (Allergen,Severity, Reaction): Coded Allergies: codeine (Verified Allergy, Unknown, "ATRIAL FIB", 10/05/17) ketorolac (Verified Allergy, Unknown, PANIC , 10/05/17) penicillin G (Verified Allergy, Unknown, Hives, 10/05/17) Reported Meds & Prescriptions Reported Meds & Active Scripts Active Soma (Carisoprodol) 350 Mg Tab 350 Mg PO Q6HR PRN Reported Soma (Carisoprodol) 350 Mg Tab 350 Mg PO QID PRN Alprazolam 1 Mg Tab 1 Mg PO Q6H PRN Aspirin Low Dose (Aspirin) 81 Mg Chew 81 Mg CHEW DAILY Review of Systems Except as stated in HPI: all other systems reviewed are Neg Physical Exam Narrative GENERAL: Well-developed well-nourished male in no acute distress no respiratory distress SKIN: Warm and dry. HEAD: Normocephalic. EYES: No scleral icterus. No injection or drainage. NECK: Supple, trachea midline. No JVD or lymphadenopathy. CARDIOVASCULAR: Regular rate and rhythm without murmurs, gallops, or rubs. RESPIRATORY: Breath sounds equal bilaterally. No accessory muscle use. GASTROINTESTINAL: Abdomen soft, non-tender, nondistended. MUSCULOSKELETAL: No cyanosis, or edema. BACK: Nontender without obvious deformity. No CVA tenderness. Data Data Last Documented VS Vital Signs Date Time Temp Pulse Resp B/P (MAP) Pulse Ox O2 Delivery O2 Flow Rate FiO2 10/06/17 00:58 10/06/17 00:40 70 18 97 Room Air 10/05/17 22:09 97.7 Orders Orders Comprehensive Metabolic Panel (10/05/17 22:36) Lipase (10/05/17 22:36) Lactic Acid (10/05/17 22:36) Prothrombin Time / Inr (Pt) (10/05/17 22:36) Act Partial Throm Time (Ptt) (10/05/17 22:36) Urinalysis - C+S If Indicated (10/05/17 22:36) Iv Access Insert/Monitor (10/05/17 22:36) Ecg Monitoring (10/05/17 22:36) Oximetry (10/05/17 22:36) Sodium Chloride 0.9% Flush (Ns Flush) (10/05/17 22:45) Electrocardiogram (10/05/17 22:36) Thyroid Stimulating Hormone (10/05/17 22:36) Magnesium (Mg) (10/05/17 22:36) Troponin I (10/05/17 22:36) Complete Blood Count With Diff (10/05/17 22:36) Ed Discharge Order (10/06/17 00:38) Labs Laboratory Tests Test 10/05/17 23:05 White Blood Count 10.9 TH/MM3 Red Blood Count 4.72 MIL/MM3 Hemoglobin 13.5 GM/DL Hematocrit 40.8 % Mean Corpuscular Volume 86.3 FL Mean Corpuscular Hemoglobin 28.7 PG Mean Corpuscular Hemoglobin Concent 33.2 % Red Cell Distribution Width 12.1 % Platelet Count 245 TH/MM3 Mean Platelet Volume 8.2 FL Neutrophils (%) (Auto) 54.7 % Lymphocytes (%) (Auto) 37.0 % Monocytes (%) (Auto) 5.5 % Eosinophils (%) (Auto) 1.6 % Basophils (%) (Auto) 1.2 % Neutrophils # (Auto) 6.0 TH/MM3 Lymphocytes # (Auto) 4.0 TH/MM3 Monocytes # (Auto) 0.6 TH/MM3 Eosinophils # (Auto) 0.2 TH/MM3 Basophils # (Auto) 0.1 TH/MM3 CBC Comment DIFF FINAL Differential Comment Prothrombin Time 10.1 SEC Prothromb Time International Ratio 1.0 RATIO Activated Partial Thromboplast Time 30.8 SEC Urine Color YELLOW Urine Turbidity CLEAR Urine pH 6.0 Urine Specific Carmine 1.020 Urine Protein NEG mg/dL Urine Glucose (UA) NEG mg/dL Urine Ketones NEG mg/dL Urine Occult Blood NEG Urine Nitrite NEG Urine Bilirubin NEG Urine Leukocyte Esterase NEG Urine RBC 0-2 /hpf Urine WBC 0-2 /hpf Urine Squamous Epithelial Cells 0-5 /hpf Urine Bacteria NONE /hpf Microscopic Urinalysis Comment CULT NOT INDICATED Blood Urea Nitrogen 14 MG/DL Creatinine 1.10 MG/DL Random Glucose 97 MG/DL Total Protein 7.4 GM/DL Albumin 3.5 GM/DL Calcium Level 8.4 MG/DL Magnesium Level 2.3 MG/DL Alkaline Phosphatase 70 U/L Aspartate Amino Transf (AST/SGOT) 17 U/L Alanine Aminotransferase (ALT/SGPT) 30 U/L Total Bilirubin 0.2 MG/DL Sodium Level 137 MEQ/L Potassium Level 3.7 MEQ/L Chloride Level 103 MEQ/L Carbon Dioxide Level 28.7 MEQ/L Anion Gap 5 MEQ/L Estimat Glomerular Filtration Rate 78 ML/MIN Lactic Acid Level 0.7 mmol/L Troponin I LESS THAN 0.02 NG/ML Lipase 104 U/L Thyroid Stimulating Hormone 3rd Gen 1.010 uIU/ML MDM Medical Decision Making Medical Screen Exam Complete: Yes Emergency Medical Condition: Yes Medical Record Reviewed: Yes Interpretation(s) EKG: normal sinus rhythm rate 65 normal axis and intervals no acute ST elevation or injury pattern change noted CBC & BMP Diagram 10/05/17 23:05 Total Protein 7.4, Albumin 3.5, Calcium Level 8.4 L, Magnesium Level 2.3, Alkaline Phosphatase 70, Aspartate Amino Transf (AST/SGOT) 17, Alanine Aminotransferase (ALT/SGPT) 30, Total Bilirubin 0.2 Vital Signs Date Time Temp Pulse Resp B/P (MAP) Pulse Ox O2 Delivery O2 Flow Rate FiO2 10/05/17 23:10 62 16 126/70 (88) 95 Room Air 10/05/17 22:40 59 18 138/76 (96) 94 Room Air 10/05/17 22:40 18 95 Room Air 10/05/17 22:28 18 10/05/17 22:09 97.7 97 147/83 (104) 98 Lactic acid: 0.7, not elevated CK 70 not elevated troponin I 0.02 not elevated UA normal TSH within normal range Differential Diagnosis Abdominal pain gastritis peptic ulcer disease colitis pancreatitis cervical spine sprain strain and radiculopathy ulnar nerve inflammation, anxiety Narrative Course EKG ordered specimens collected and sent for resulting Patient resting comfortably lab results and EKG found to be grossly within normal range Patient feels improved and requests refill for Soma. Diagnosis Primary Impression: Abdominal pain Qualified Codes: R10.84 - Generalized abdominal pain Additional Impressions: Chronic neck pain Medication refill Referrals: Primary Care Physician call for appointment Patient Instructions: General Instructions Additional Instructions: Follow-up with your primary care Return to the emergency department for a concerns or change in condition Take medication as prescribed Increase fluid hydration Med/Other Pt SpecificInfo: Prescription(s) given Scripts Carisoprodol (Soma) 350 Mg Tab 350 MG PO Q6HR Y for PAIN, #12 TAB 0 Refills Prov: Annalee Gray MD 10/06/17 Disposition: 01 DISCHARGE HOME Condition: Stable Annalee Gray MD Oct 05, 2017 22:55
[2017-10-05 23:10] VITALS: BP 126/70; PULSE 62; RESP 16; O2SAT 95
[2017-10-05 23:25] LABS: BASOPHIL # 0.1 TH/MM3 (0-0.2); BASOPHIL % 1.2 % (0.0-2.0); EOSINOPHIL # 0.2 TH/MM3 (0-0.4); EOSINOPHIL % 1.6 % (0.0-4.0); HEMATOCRIT 40.8 % (39.0-51.0); HEMOGLOBIN 13.5 GM/DL (13.0-17.0); MEAN CELL VOLUME 86.3 FL (80.0-100.0); MEAN CORPUSCULAR HEMOGLOBIN 28.7 PG (27.0-34.0); MEAN CORPUSCULAR HGB CONC 33.2 % (32.0-36.0); MEAN PLATELET VOLUME 8.2 FL (7.0-11.0); MONO % 5.5 % (0.0-8.0); MONOCYTE # 0.6 TH/MM3 (0-0.9); NEUT % 54.7 % (16.0-70.0); PLATELET COUNT 245 TH/MM3 (150-450); RED BLOOD COUNT 4.72 MIL/MM3 (4.50-5.90); RED CELL DISTRIBUTION WIDTH 12.1 % (11.6-17.2); WHITE BLOOD COUNT 10.9 TH/MM3 (4.0-11.0)
[2017-10-05 23:28] LABS: BILIRUBIN, URINE NEG (NEG); BLOOD, URINE NEG (NEG); GLUCOSE,URINE NEG (NEG); KETONE, URINE NEG (NEG); NITRITE,URINE NEG (NEG); URINE LEUKOCYTE ESTERASE NEG (NEG)
[2017-10-05 23:30] LABS: URINE COLOR YELLOW (YELLW/STRAW)
[2017-10-05 23:33] LABS: RBC, URINE 0-2 /hpf (0-3); SQUAMOUS EPITHELIAL CELL URINE 0-5 /hpf (0-5); WBC, URINE 0-2 /hpf (0-5)
[2017-10-05 23:35] LABS: CHLORIDE 103 MEQ/L (98-107); SODIUM (NA) 137 MEQ/L (136-145)
[2017-10-05 23:38] LABS: CALCIUM 8.4 MG/DL (8.5-10.1); GLUCOSE,RANDOM 97 MG/DL (74-106)
[2017-10-05 23:39] LABS: ALBUMIN 3.5 GM/DL (3.4-5.0); BICARBONATE 28.7 MEQ/L (21.0-32.0); BLOOD UREA NITROGEN 14 MG/DL (7-18); LIPASE 104 U/L (73-393); MAGNESIUM 2.3 MG/DL (1.5-2.5)
[2017-10-05 23:40] VITALS: BP 109/69; PULSE 58; RESP 16; O2SAT 96
[2017-10-05 23:41] LABS: PROTHROMBIN TIME - PATIENT 10.1 SEC (9.8-11.6)
[2017-10-05 23:42] LABS: ALT (GPT) 30 U/L (12-78); AST (GOT) 17 U/L (15-37); GLOMERULAR FILTRATION RATE 78 ML/MIN (>89)
[2017-10-05 23:43] LABS: TOTAL BILIRUBIN ADULT 0.2 MG/DL (0.2-1.0)
[2017-10-05 23:44] LABS: ALKALINE PHOSPHATASE 70 U/L (45-117); TOTAL PROTEIN 7.4 GM/DL (6.4-8.2)
[2017-10-05 23:47] LABS: TROPONIN I LESS THAN 0.02 NG/ML (0.02-0.05)
[2017-10-06 00:10] VITALS: BP 122/68; PULSE 60; RESP 16; O2SAT 95
[2017-10-06 00:40] VITALS: BP 130/71; PULSE 70; RESP 18; O2SAT 97
[2017-10-06] MEDS ORDERED: SOMA350T PO (00:42)
--- NOTE | 2017-10-08 09:38 | EKG ---
Date Performed: 10/05/2017 Time Performed: 22:45:39 PTAGE: 32 years EKG: Sinus rhythm NORMAL ECG PREVIOUS TRACING : 06/27/2017 09.37 Compared to prior tracing no significant change DOCTOR: Melvi Peralta Interpretating Date/Time 10/08/2017 09:38:08
== END 2017-10-06 00:58 | disposition home or self-care (01) ==
LOC: PHED 21:56
DX: R10.84 Generalized abdominal pain (principal); M54.2 Cervicalgia; G89.29 Other chronic pain; R20.2 Paresthesia of skin; I48.91 Unspecified atrial fibrillation; F41.9 Anxiety disorder, unspecified; E11.9 Type 2 diabetes mellitus without complications; Z86.73 Personal history of transient ischemic attack (TIA), and cerebral infarction without residual deficits; Z76.0 Encounter for issue of repeat prescription
CPT/HCPCS: 80053; 81001; 83605; 83690; 83735; 84443; 84484; 85025; 85610; 85730; 93005

== ENCOUNTER 2017-11-09 08:05 | Emergency (ER) | payer OTHER, MEDICARE, MEDICAID ==
[~2017-11-09] VITALS: Ht 182.9 cm; Wt 125.0 kg
[~2017-11-09 08:05] MED LIST changes: +ALPR1TAB3 PO; +SOMA350T PO; -TYLE325T PO; -XANA1TAB2 PO
[2017-11-09 08:12] VITALS: BP 154/85; PULSE 87; RESP 16; TEMP 98.4; O2SAT 98
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
== END 2017-11-09 10:15 | disposition home or self-care (01) ==
LOC: PHED 08:05
DX: S16.1XXA Strain of muscle, fascia and tendon at neck level, initial encounter (principal); M54.5 Low back pain; G89.29 Other chronic pain; I25.2 Old myocardial infarction; I48.91 Unspecified atrial fibrillation; F32.9 Major depressive disorder, single episode, unspecified; F43.10 Post-traumatic stress disorder, unspecified; V49.40XA Driver injured in collision with unspecified motor vehicles in traffic accident, initial encounter; Z86.73 Personal history of transient ischemic attack (TIA), and cerebral infarction without residual deficits; Z88.0 Allergy status to penicillin; Z88.5 Allergy status to narcotic agent; Z79.899 Other long term (current) drug therapy
CPT/HCPCS: 72040; 72100; 99283; 99284

== ENCOUNTER 2017-12-04 13:22 | Emergency (ER) | payer MEDICARE, MEDICAID ==
[~2017-12-04] VITALS: Ht 180.3 cm; Wt 127.8 kg
[~2017-12-04 13:22] MED LIST changes: -ASPI81CH6 CHEW; -SOMA350T PO
[2017-12-04 13:30] VITALS: BP 148/83; PULSE 85; RESP 18; TEMP 97.6; O2SAT 97
[2017-12-04] MEDS ORDERED: ASPI81CH6 CHEW ×2 (13:49)
[2017-12-04] MEDS ORDERED: IBUPROFEN 800 MG TAB PO ONE (14:00)
--- NOTE | 2017-12-04 14:03 | PD ---
HPI Chief Complaint: Cold / Flu Symptoms Time Seen by Provider: 13:56 Travel History International Travel<30 days: No Contact w/Intl Traveler<30days: No Traveled to known affect area: No History of Present Illness HPI Patient was emergency department complaining of cough, rhinorrhea, sneezing, and sinus congestion that began yesterday. Patient reports that he tried taking Robitussin with no improvement in symptoms. Patient reports a history of bad environmental allergies but has been out of his Zyrte for 2 days. Patient denies anything making symptoms better or worse. Reports cough is dry nonproductive. Denies fevers. Patient reports sneezing and coughing is giving him pain in his upper back. Not coughing sneezing improves the pain. Patient denies doing anything else for this. Patient requesting ibuprofen for pain. PFSH Past Medical History Hx Anticoagulant Therapy: Yes (BABY ASA DAILY) Atrial Fibrillation: Yes Anxiety: Yes Depression: Yes Heart Rhythm Problems: Yes Cardiac Catheterization: Yes Cardiovascular Problems: Yes (AFIB) High Cholesterol: No Cerebrovascular Accident: Yes (PER PT WHILE ON ACTIVE DUTY) Diabetes: Yes (pre-diabetic) Diminished Hearing: No Heparin Induced Thrombocytopen: No Hypertension: No Psychiatric: Yes (PTSD, ANXIETY) Immunizations Current: Yes Myocardial Infarction: Yes (AGE 20) Tetanus Vaccination: < 5 Years Influenza Vaccination: No Past Surgical History Appendectomy: Yes Coronary Artery Bypass Graft: No Family History Family Myocardial Infarction: Yes (paternal grandfather) Social History Alcohol Use: Yes Tobacco Use: Yes (chew n smoke occ) Substance Use: No Allergies-Medications (Allergen,Severity, Reaction): Coded Allergies: codeine (Verified Allergy, Unknown, "ATRIAL FIB", 12/04/17) ketorolac (Verified Allergy, Unknown, PANIC , 12/04/17) penicillin G (Verified Allergy, Unknown, Hives, 12/04/17) Reported Meds & Prescriptions Reported Meds & Active Scripts Active Ibuprofen 800 Mg Tab 800 Mg PO Q8H PRN Zyrtec (Cetirizine HCl) 10 Mg Capsule 1 Cap PO DAILY 30 Days Reported Aspirin Low Dose (Aspirin) 81 Mg Chew 81 Mg CHEW PM Aspirin Low Dose (Aspirin) 81 Mg Chew 162 Mg CHEW AM Alprazolam 1 Mg Tab 2 Mg PO Q6H PRN Review of Systems Except as stated in HPI: all other systems reviewed are Neg Physical Exam Narrative GENERAL: Well-developed, overly nourished, in no acute distress, and non-ill appearing. SKIN: Focused skin assessment warm and dry. HEAD: Atraumatic. Normocephalic. EYES: Pupils equal and round. EOMI. No scleral icterus. No injection or drainage. ENT: No nasal bleeding or discharge. Mucous membranes pink and moist. Tympanic membranes pearly contreras bilaterally. Posterior pharynx nonerythematous without exudate. Uvula is midline. No tenderness to the sinuses to palpation. NECK: Trachea midline. No cervical lymphadenopathy. Supple. No nuclear rigidity. CARDIOVASCULAR: Regular rate and rhythm. No murmur appreciated. RESPIRATORY: No accessory muscle use. No respiratory distress. Clear to auscultation. Breath sounds equal bilaterally. MUSCULOSKELETAL: No obvious deformities. No clubbing. No cyanosis. No edema. Full range of motion. NEUROLOGICAL: Awake and alert. No obvious cranial nerve deficits. Motor grossly within normal limits. Normal speech. PSYCHIATRIC: Appropriate mood and affect; insight and judgment normal. Data Data Last Documented VS Vital Signs Date Time Temp Pulse Resp B/P (MAP) Pulse Ox O2 Delivery O2 Flow Rate FiO2 12/04/17 13:30 97.6 85 18 148/83 (104) 97 Orders Orders Influenzae A/B Antigen (12/04/17 13:39) Group A Rapid Strep Screen (12/04/17 13:39) Ibuprofen (Motrin) (12/04/17 14:00) Cetirizine (Zyrtec) (12/04/17 14:15) Strep Culture (Group A) (12/04/17 13:48) Ed Discharge Order (12/04/17 14:20) MDM Medical Decision Making Medical Screen Exam Complete: Yes Emergency Medical Condition: Yes Differential Diagnosis Influenza, sinusitis, allergies, URI, sinusitis Narrative Course Patient looks great, non-ill appearing. The patient is tolerating fluids and is well hydrated. Appears allergic sinusitis. No clinical evidence by history or evaluation to suspect infection, meningitis and/or sepsis. There was no evidence to suggest deep abscess or cavernous sinus involvement. I discussed with the patient, diagnosis, plan of care, medications and to follow up with the patients primary physician. The patient was instructed to return if the worsens in anyway, especially if not tolerating fluids, increased sinus pain or swelling, worsening headache, persistent fever, difficulty swallowing or breathing, or as needed. The patient agreed with plan. Patient in no obvious distress upon re-evaluation. All pertinent laboratory result(s) discussed with patient. Patient was asked if they wanted to speak to my attending, which the patient did not wish to do at this time. Any questions/ concerns in reference to patient diagnosis/condition discussed and clarified prior to patient's discharge. Reinforced sheer importance of close follow up with patient's primary physician or primary care clinic. Instructed patient to return to ED immediately, if symptoms return/worsen. Patient showed understanding of above instructions. Further instructions and recommendations were detailed in discharge paperwork. Patient ambulated without difficulty out of ED at discharge. Diagnosis Primary Impression: Allergic rhinitis Qualified Codes: J30.9 - Allergic rhinitis, unspecified Referrals: [facility] [address] Patient Instructions: Allergic Rhinitis (ED), General Instructions Additional Instructions: Follow-up with your primary care physician next week for reevaluation. Take all medication as prescribed. Drink plenty of non-caffeinated and nonalcoholic fluids. Return to the emergency department if symptoms get worse. Med/Other Pt SpecificInfo: Prescription(s) given Scripts Ibuprofen (Ibuprofen) 800 Mg Tab 800 MG PO Q8H Y for Pain/Inflammation, #15 TAB 0 Refills Prov: Luis Farias MD 12/04/17 Cetirizine HCl (Zyrtec) 10 Mg Capsule 1 CAP PO DAILY for 30 Days Prov: Luis Farias MD 12/04/17 Disposition: 01 DISCHARGE HOME Condition: Stable Ang Pruett Dec 04, 2017 14:02
[2017-12-04] MEDS ORDERED: CETIRIZINE HCL 10 MG TAB PO ONE (14:15)
[2017-12-04] MEDS ORDERED: CETI10CA3 PO (14:19)
[2017-12-04] MEDS ORDERED: IBUP1TAB7 PO (14:19)
== END 2017-12-04 14:32 | disposition home or self-care (01) ==
LOC: PHEFT 13:22
DX: J30.9 Allergic rhinitis, unspecified (principal); R05 Cough; M54.6 Pain in thoracic spine; I48.91 Unspecified atrial fibrillation; R73.03 Prediabetes; F41.8 Other specified anxiety disorders; I25.2 Old myocardial infarction; Z72.0 Tobacco use; Z79.82 Long term (current) use of aspirin; Z86.73 Personal history of transient ischemic attack (TIA), and cerebral infarction without residual deficits
CPT/HCPCS: 87081; 87804; 87880; 99283

== ENCOUNTER 2018-02-14 16:17 | Emergency (ER) | payer MEDICARE, MEDICAID ==
[~2018-02-14 16:17] MED LIST changes: +ASPI81CH6 CHEW; +CETI10CA3 PO; +IBUP1TAB7 PO
[2018-02-14 16:20] VITALS: BP 161/99; PULSE 107; RESP 20; O2SAT 94; O2SAT 95
[2018-02-14] MEDS ORDERED: diphenhydrAMINE HCL 50 MG/ML VIAL IVP ONE (16:30)
[2018-02-14] MEDS ORDERED: methylPREDNISolone SOD SUCC 125 MG/2 ML VIAL IV PUSH ONE (16:30)
[2018-02-14] MEDS ORDERED: SODIUM CHLORIDE 0.9% FLUSH 10 ML FLUSH IV FLUSH PRN (16:30)
[2018-02-14] MEDS: RESP: ALBUTEROL 2.5 MG/IPRATROPIUM 0.5 MG NEB (SCH) INH ×2 (16:38→17:00)
[2018-02-14 17:06] VITALS: BP 151/99; PULSE 83; RESP 20; O2SAT 94
[2018-02-14 17:12] VITALS: O2SAT 88
--- NOTE | 2018-02-14 17:18 | PD ---
HPI Chief Complaint: Respiratory Distress Time Seen by Provider: 16:24 Travel History International Travel<30 days: No Contact w/Intl Traveler<30days: No Traveled to known affect area: No History of Present Illness HPI 32-year-old male came to the emergency room with history of sudden onset of difficulty breathing just prior to coming to the emergency room. Patient is allergic to bee stings and this felt like an allergic reaction to him. Patient is here with his girlfriend who is giving most of the history. Patient also drove from [place] straight and just reached home yesterday. He has been complaining of some left leg pain. He is feeling chest tightness. Patient seems extremely anxious. He was brought in as a straight back. [facility] Past Medical History Narrative Medical List of his past medical, surgical, social and family history is reviewed from the nursing note. Hx Anticoagulant Therapy: Yes (BABY ASA DAILY) Atrial Fibrillation: Yes Anxiety: Yes Depression: Yes Heart Rhythm Problems: Yes Cardiac Catheterization: Yes Cardiovascular Problems: Yes (AFIB) High Cholesterol: No Cerebrovascular Accident: Yes (PER PT WHILE ON ACTIVE DUTY) Diabetes: Yes (pre-diabetic) Patient Takes Glucophage: No Diminished Hearing: No Heparin Induced Thrombocytopen: No Hypertension: No Psychiatric: Yes (PTSD, ANXIETY) Immunizations Current: Yes Myocardial Infarction: Yes (AGE 20) Past Surgical History Appendectomy: Yes Coronary Artery Bypass Graft: No Family History Family Myocardial Infarction: Yes (paternal grandfather) Social History Alcohol Use: Yes Tobacco Use: Yes (chew n smoke occ) Substance Use: No Allergies-Medications (Allergen,Severity, Reaction): Coded Allergies: codeine (Verified Allergy, Unknown, "ATRIAL FIB", 02/14/18) ketorolac (Verified Allergy, Unknown, PANIC , 02/14/18) penicillin G (Verified Allergy, Unknown, Hives, 02/14/18) Comments List of his allergies reviewed from the nursing note. Reported Meds & Prescriptions Reported Meds & Active Scripts Active Ibuprofen 800 Mg Tab 800 Mg PO Q8H PRN Zyrtec (Cetirizine HCl) 10 Mg Capsule 1 Cap PO DAILY 30 Days Reported Aspirin Low Dose (Aspirin) 81 Mg Chew 162 Mg CHEW AM Alprazolam 1 Mg Tab 2 Mg PO Q6H PRN Narrative Medication List of his home medications reviewed from the nursing note. Review of Systems Except as stated in HPI: all other systems reviewed are Neg Respiratory: Positive: Wheezing Physical Exam Narrative GENERAL: Awake, alert, obese, extremely anxious, moderate to SKIN: Focused skin assessment warm/dry. HEAD: Atraumatic. Normocephalic. EYES: Pupils equal and round. No scleral icterus. No injection or drainage. ENT: No nasal bleeding or discharge. Mucous membranes pink and moist. NECK: Trachea midline. No JVD. No stridor CARDIOVASCULAR: Regular rate and rhythm. No murmur appreciated. RESPIRATORY: No accessory muscle use. Decreased air entry bilaterally, and expiratory wheeze GASTROINTESTINAL: Abdomen soft, non-tender, nondistended. Hepatic and splenic margins not palpable. MUSCULOSKELETAL: No obvious deformities. No clubbing. No cyanosis. No edema. NEUROLOGICAL: Awake and alert. No obvious cranial nerve deficits. Motor grossly within normal limits. Normal speech. PSYCHIATRIC: Appropriate mood and affect; insight and judgment normal. Data Data Last Documented VS Vital Signs Date Time Temp Pulse Resp B/P (MAP) Pulse Ox O2 Delivery O2 Flow Rate FiO2 02/14/18 19:25 02/14/18 19:12 63 18 97 Room Air 02/14/18 17:13 2.00 Orders Orders Ecg Monitoring (02/14/18 16:25) Iv Access Insert/Monitor (02/14/18 16:25) Oximetry (02/14/18 16:25) Diphenhydramine Inj (Benadryl Inj) (02/14/18 16:30) Methylprednisolone So Succ Inj (Solumedr (02/14/18 16:30) Albuterol-Ipratropium Neb (Duoneb Neb) (02/14/18 16:30) Sodium Chloride 0.9% Flush (Ns Flush) (02/14/18 16:30) Us Leg Venous Doppler (02/14/18 ) Blood Glucose (02/14/18 18:20) MDM Medical Decision Making Medical Screen Exam Complete: Yes Emergency Medical Condition: Yes Medical Record Reviewed: Yes Differential Diagnosis Allergic reaction, reactive airway disease, bronchospasm Narrative Course 6:19 PM patient was initially given IV Benadryl and IV Solu-Medrol. I ordered 3 DuoNeb's [id number] but patient was concerned of getting A. fib since he has history of A. fib. However he was reassured that given his symptoms patient would require a bronchodilator so he went ahead with the DuoNeb. I went and reassessed him and breathing seems better. Patient became sedated after the Benadryl. I have ordered for ultrasound of his leg to rule out DVT. Awaiting for the test to be done and resulted. 6:[address] technician [address] here. Awaiting for the test result. Case will be signed over to the oncoming ER physician. 7:11 PM patient wants to go home and does not want to stay to get the ultrasound report. He will leave AGAINST MEDICAL ADVICE. He is in full capacity to make decisions for himself. Procedures EKG Prior to Arrival: No Diagnosis Primary Impression: Allergic reaction Qualified Codes: T78.40XA - Allergy, unspecified, initial encounter Additional Impressions: Bronchospasm Anxiety Disposition: 07 AGAINST MEDICAL ADVICE Condition: Serious Etelvina Ram MD February 14, 2018 17:18
[2018-02-14 18:33] VITALS: BP 119/87; PULSE 77; RESP 16; O2SAT 96
[2018-02-14 19:12] VITALS: BP 123/68; PULSE 63; RESP 18; O2SAT 97
--- NOTE | 2018-02-14 19:48 | RADRPT ---
EXAM DATE/TIME: 02/14/2018 18:47 [facility] COMPARISON: No previous studies available for comparison. INDICATIONS : Left leg swelling. MEDICAL HISTORY : Stroke. Myocardial infarction. Syncope. Atrial fibrillation. Anticoagulant therapy. Asthma. Diabe lety. Depression. Anxiety. Claustrophobia. SURGICAL HISTORY : None. ENCOUNTER: Subsequent ACUITY: 1 day PAIN SCORE: 1/10 LOCATION: Left leg. TECHNIQUE: Venous ultrasound of the leg was performed from the inguinal ligament to the proximal calf. Real-mario e, color Doppler and spectral tracing, compression and augmentation techniques were used. FINDINGS: There is normal compressibility of the deep venous system from the inguinal region to the proximal ca lf. No echogenic clot is seen in the lumen of the common femoral, femoral, popliteal, and posterior tibial veins. There is a normal response of the venous system to proximal and distal augmentation an d respiration. CONCLUSION: Normal examination. Xavier Stark MD on February 14, 2018 at 19:46 Board Certified Radiologist. This report was verified electronically.
== END 2018-02-14 19:31 | disposition left against medical advice (07) ==
LOC: PHED 16:17
DX: T78.40XA Allergy, unspecified, initial encounter (principal); J98.01 Acute bronchospasm; M79.605 Pain in left leg; R07.89 Other chest pain; F41.9 Anxiety disorder, unspecified; I48.91 Unspecified atrial fibrillation; E11.9 Type 2 diabetes mellitus without complications; F43.10 Post-traumatic stress disorder, unspecified; Z86.73 Personal history of transient ischemic attack (TIA), and cerebral infarction without residual deficits
CPT/HCPCS: 93971; 94640; 94664; 96374; 96375; 99284; J1200; J2930

== ENCOUNTER 2018-03-22 00:37 | Emergency (ER) | payer MEDICARE, MEDICAID ==
[2018-03-22 00:42] VITALS: BP 138/87; PULSE 84; RESP 15; TEMP 98; O2SAT 98
[2018-03-22] MEDS ORDERED: MEDR4PAK PO (01:17)
[2018-03-22] MEDS ORDERED: NORC5TAB PO (01:17)
--- NOTE | 2018-03-22 01:24 | PD ---
HPI Chief Complaint: Back/ Neck Pain or Injury Time Seen by Provider: 00:53 Travel History International Travel<30 days: No Contact w/Intl Traveler<30days: No Traveled to known affect area: No History of Present Illness HPI 33-year-old white male presents emergency department with complaints of lower back pain. The patient states that he has had back pain for some time time now. It has gotten worse the last couple days. He states that typically he has had pain once a year and gets a shot of cortisone in a prescription for pain medication and it resolves. He has been taking ibuprofen at home without relief. Patient has had a history of chronic neck and back pain. He is disabled due to back pain and atrial fibrillation. He states that he gets intermittent A. fib when he drinks alcohol or does certain things. He denies any acute trauma. No acute bowel or bladder changes. He states that this is similar pain that he has had with radiation into both legs. Worse with movement. Some relief with sitting and bending his legs up. PFSH Past Medical History Hx Anticoagulant Therapy: Yes (BABY ASA DAILY) Atrial Fibrillation: Yes Anxiety: Yes Depression: Yes Heart Rhythm Problems: Yes Cardiac Catheterization: Yes Cardiovascular Problems: Yes (afib) High Cholesterol: No Cerebrovascular Accident: Yes (PER PT WHILE ON ACTIVE DUTY) Diabetes: Yes (pre-diabetic) Diminished Hearing: No Heparin Induced Thrombocytopen: No Hypertension: No Psychiatric: Yes (PTSD, ANXIETY) Respiratory: Yes (asthma) Immunizations Current: Yes Myocardial Infarction: Yes (AGE 20) Past Surgical History Appendectomy: Yes Coronary Artery Bypass Graft: No Social History Alcohol Use: Yes Tobacco Use: Yes (chew n smoke occ) Substance Use: No Allergies-Medications (Allergen,Severity, Reaction): Coded Allergies: codeine (Verified Allergy, Severe, "ATRIAL FIB", 03/22/18) ketorolac (Verified Allergy, Severe, PANIC , 03/22/18) penicillin G (Verified Allergy, Severe, Hives, 03/22/18) Reported Meds & Prescriptions Reported Meds & Active Scripts Active [place] (Hydrocodone-Acetaminophen) 5 Mg-325 Mg Tab 1 Tab PO Q6H PRN 3 Days Medrol Dosepak (Methylprednisolone) 4 Mg Dspk 4 Mg PO DIRECTED Per Pharmacist direction Ibuprofen 800 Mg Tab 800 Mg PO Q8H PRN Zyrtec (Cetirizine HCl) 10 Mg Capsule 1 Cap PO DAILY 30 Days Reported Aspirin Low Dose (Aspirin) 81 Mg Chew 162 Mg CHEW AM Alprazolam 1 Mg Tab 2 Mg PO Q6H PRN Review of Systems General / Constitutional: No: Fever Eyes: No: Visual changes HENT: No: Headaches Cardiovascular: No: Chest Pain or Discomfort Respiratory: No: Shortness of Breath Gastrointestinal: No: Abdominal Pain Genitourinary: No: Dysuria Musculoskeletal: Positive: Arthralgias, Limited ROM, Pain Skin: No Rash Neurologic: No: Weakness Psychiatric: No: Depression Endocrine: No: Polydipsia Hematologic/Lymphatic: No: Easy Bruising Physical Exam Narrative GENERAL: Well-developed, well-nourished in no acute distress. Nontoxic appearing. HEAD: Normocephalic, atraumatic. EYES: Pupils equal round and reactive. Extraocular motions intact. No scleral icterus. No injection or drainage. ENT: TMs clear without erythema. The external auditory canals clear. Nose: clear . Posterior pharynx is pink and moist. No tonsillar edema or exudate. Uvula midline. Airway patent. NECK: Trachea midline.Supple, nontender, moves head freely. No central bony tenderness or spasm. CARDIOVASCULAR: Regular rate and rhythm without murmurs, gallops, or rubs. RESPIRATORY: Clear to auscultation. Breath sounds equal bilaterally. No wheezes , rales, or rhonchi. GASTROINTESTINAL: Abdomen soft, non-tender, nondistended. No hepato-splenomegaly , or palpable masses. No guarding. EXTREMITIES: No clubbing, cyanosis, or edema. No joint tenderness, effusion, or edema noted. BACK: Lower lumbar tenderness complaints of lower lumbar tenderness, without deformity or crepitance. No flank tenderness. No saddle anesthesia. No gross spasm. Intact sensation good distal pulses. Data Data Last Documented VS Vital Signs Date Time Temp Pulse Resp B/P (MAP) Pulse Ox O2 Delivery O2 Flow Rate FiO2 03/22/18 00:42 98.0 84 15 138/87 (104) 98 Orders Orders Dexamethasone Inj (Decadron Inj) (03/22/18 01:30) Acetamin-Hydrocod 325-5 Mg ([place]on 5-325 (03/22/18 01:30) Ed Discharge Order (03/22/18 01:17) MDM Medical Decision Making Medical Screen Exam Complete: Yes Emergency Medical Condition: Yes Medical Record Reviewed: Yes Differential Diagnosis MDM: High Differential diagnoses: sprain, strain, HNP, nerve or vascular injury Narrative Course Patient is given Decadron 10 mg IM, hydrocodone 5 mg p.o. This acute exacerbation of chronic back pain Diagnosis Primary Impression: Acute exacerbation of chronic low back pain Patient Instructions: Narcotic given in the ED, General Instructions Additional Instructions: Rest. Ice for the next 3 days followed by heat . Medrol Dosepak, [place]ause[place]. Continue to take 3 [id number] Advil 4 times a day with food. Follow-up with a primary care doctor in one week. Return to the ER for emergencies. Med/Other Pt SpecificInfo: Prescription(s) given Scripts Hydrocodone-Acetaminophen (Wauseon) 5 Mg-325 Mg Tab 1 TAB PO Q6H Y for PAIN for 3 Days, #12 TAB 0 Refills Prov: Annalee Gray MD 03/22/18 Methylprednisolone Dosepak (Medrol Dosepak) 4 Mg Dspk 4 MG PO DIRECTED, #1 DSPK 0 Refills Per Pharmacist direction Prov: Annalee Gray MD 03/22/18 Disposition: 01 DISCHARGE HOME Condition: Stable Xavier Ramos Mar 22, 2018 01:24
[2018-03-22] MEDS ORDERED: DEXAMETHASONE SOD PHOS 20 MG/5 ML VIAL IM ONE (01:30)
[2018-03-22] MEDS ORDERED: ACETAMINOPHEN/HYDROcodone 325 MG/5 MG TAB PO ONE (01:30)
== END 2018-03-22 01:46 | disposition home or self-care (01) ==
LOC: NEPD 00:37
DX: M54.5 Low back pain (principal); G89.29 Other chronic pain
CPT/HCPCS: 96372; 99283; J1100